=== PATIENT | female | born 1940 | race Caucasian/White ===

== ENCOUNTER 2019-05-26 07:16 | Inpatient (IN) | payer MEDICARE ==
--- NOTE | 2019-05-16 13:06 | HP ---
HISTORY AND PHYSICAL: DATE OF ADMISSION/SURGERY: 05/26/19 DATE OF OFFICE VISIT: 05/15/19 SURGEON: Caryn Huerta MD * (DICTATED BY MICHELLE TAVAREZ) PROCEDURE: Left total knee arthroplasty. CHIEF COMPLAINT: Left knee pain. HISTORY OF PRESENT ILLNESS: Ms. Quarles is an 79-year-old female with severe left knee pain. She has elected to proceed with a left total knee arthroplasty. PAST MEDICAL HISTORY: 1. AFib. 2. High cholesterol. PAST SURGICAL HISTORY: 1. Cardiac ablation. 2. ICD placement. 3. Tonsillectomy. 4. Appendectomy. 5. Hysterectomy. 6. Right total knee arthroplasty with Dr. Guerra. CURRENT MEDICATIONS: 1. Coumadin 2 mg. 2. Simvastatin 20 mg a day. 3. Prilosec 20 mg half a tab in the morning. 4. Aspirin 81 mg twice a week. 5. Calcium. ALLERGIES: To NAPROXEN. FAMILY HISTORY: Coronary artery disease. SOCIAL HISTORY: She is an 79-year-old female. She lives with her partner. She does not smoke, use drugs, or alcohol. REVIEW OF SYSTEMS: A complete 14-point review of systems was reviewed with the patient and is all negative. She denies history of DVT, PE, hepatitis, HIV, or anesthesia problems. PHYSICAL EXAMINATION GENERAL: She is well developed, well nourished, in no acute distress. VITAL SIGNS: She stands 5 feet 5 inches tall, weighs 130 pounds. Blood pressure is 112/70, heart rate is 68. HEENT: Normocephalic, atraumatic. NECK: Supple. No palpable lymph nodes. PULMONARY: The lungs are clear to auscultation bilaterally. CARDIO: Regular rate and rhythm. Strong S1, S2. ABDOMEN: Soft, nontender, nondistended. NEUROLOGICAL: She is alert and oriented x3. MUSCULOSKELETAL: Left lower extremity: The skin is intact. There are no open wounds or abrasions. There is a moderate effusion of the left knee joint. She walks with antalgic-type gait favoring the left knee. Range of motion is 5 to 125 degrees of flexion with severe patellofemoral crepitus. She has a 2+ dorsalis pedis pulse. She is able to dorsiflex and plantar flex and has intact sensation. ASSESSMENT AND PLAN: Ms. Stisser is an 79-year-old female with severe end- stage osteoarthritis of the left knee. She has failed conservative treatment and elected to proceed with a left total knee arthroplasty. The surgery is scheduled for 05/26/[address] Huerta discussed the risks and benefits of the surgery at today's visit and all of her questions were answered. She will follow up with Dr. Huerta 2 weeks after the surgery. She was told to stop her Coumadin 4 days prior to the surgery. Following the surgery, she will be placed on Lovenox as well as Coumadin until her INR is therapeutic. MICHELLE TAVAREZ [id number]/[facility] #: [id number] MTDAlexis
[~2019-05-26 07:16] MED LIST: Acetaminophen TAB* 325 MG PO ONE; Buffered Lidocaine 1% SYRIN* 1 ML/SYRINGE INTRADERM ONE; Lactated Ringers 1000 ML Bag* 1,000 ML IV SCH; Tranexamic Acid 1,000 MG in NS 0.9% 50 ML* (outpatient use) IV SCH
--- OUTSIDE RECORDS SUMMARY | 2019-05-26 07:20 | XMS REPORT | Continuity of Care Document ---
:1940 External Reference #:[id number] Author Name Caryn Huerta M.D. (transmitted by agent of provider Bell Alonzo) Address [address] [place] [address] Care Team Providers Name Role Phone Michael Alanis DO - Family Medicine Care Team Information Accountant Controller Problems Active Problems Provider Date Localized, primary osteoarthritis Caryn Huerta M.D. Onset: 04/19/2019 Social History Type Date Description Comments Sex Unknown ETOH Use Rarely consumes alcohol Tobacco Use Start: Unknown Patient has never smoked Smoking Status Reviewed: 05/15/19 Patient has never smoked Exercise Type/Frequency Exercises regularly Allergies, Adverse Reactions, Alerts Active Allergies Reaction Severity Comments Date Naproxen swelling 04/19/2019 Medications Active Medications SIG Qnty Indications Ordering Provider Date Warfarin Sodium Unknown 2mg Tablets Simvastatin Take One Tablet By Unknown 20mg Mouth Every Day Tablets Prilosec OTC one tablet in am Unknown 20mg 1/[address] breakfast Calcium 600 Unknown Aspirin 81 1 by mouth twice a Unknown 81mg Tablets week DR Immunizations Description No Information Available Vital Signs Date Vital Result Comment 05/15/2019 10:41am Height 65.50 inches 5'5.50" Weight 130.00 lb Heart Rate 68 /min BP Systolic 112 mmHg BP Diastolic 70 mmHg Respiratory Rate 12 /min Pain Level 4 BMI (Body Mass Index) 21.3 kg/m2 04/19/2019 10:48am Height 66 inches 5'6" Weight 130.00 lb Heart Rate 92 /min BP Systolic 124 mmHg BP Diastolic 90 mmHg Respiratory Rate 16 /min Body Temperature 97.1 F Pain Level 6 BMI (Body Mass Index) 21.0 kg/m2 Results Description No Information Available Procedures Description No Information Available Medical Devices Description No Information Available Encounters Type Date Location Provider Dx Diagnosis Office Visit 04/19/2019 [facility] Caryn Huerta, M25.562 Pain in left knee 10:15a at [facility] M25.462 Effusion, left knee M17.12 Unilateral primary osteoarthritis, left knee Assessments Date Code Description Provider 05/15/2019 M25.562 Pain in left knee Caryn Huerta M.D. 05/15/2019 M25.462 Effusion, left knee Caryn Huerta M.D. 05/15/2019 M17.12 Unilateral primary osteoarthritis, left knee Caryn Huerta M.D. 04/19/2019 M25.562 Pain in left knee Caryn Huerta M.D. 04/19/2019 M25.462 Effusion, left knee Caryn Huerta M.D. 04/19/2019 M17.12 Unilateral primary osteoarthritis, left knee Caryn Huerta M.D. Plan of Treatment Future Appointment(s):06/05/2019 9:45 am - Caryn Huerta M.D. at [facility] at [id number]/26/2019 8:30 am - Caryn Huerta M.D. at [facility] at [id number]/15/2019 - Caryn Huerta M.D.M25.562 Pain in left kneeFollow up:Follow up: 2 weeks after [id number] Effusion, left kneeM17.12 Unilateral primary osteoarthritis, left knee Functional Status Description No Information Available Mental Status Description No Information Available Referrals Description No Information Available
--- OUTSIDE RECORDS SUMMARY | 2019-05-26 07:20 | XMS REPORT | Continuity of Care Document ---
:1940 External Reference #:[id number] Author Name Solomon Arevalo M.D., [facility] (transmitted by agent of provider Betsey Nicholson) Address [address] [place] [address] Care Team Providers Name Role Phone Roderick Armas MD - Clinical Care Team Information Compliance Specialist [phone] Cardiac Electrophysiology Michael Alanis DO - Family Medicine Care Team Information Compliance Specialist Waqar Hale MD - Cardiovascular Care Team Information Compliance Specialist Disease Problems Active Problems Provider Date Atrial fibrillation Solomon Arevalo M.D., Onset: 01/06/2011 FACC Hyperlipidemia Solomon Arevalo M.D., Onset: 03/05/2011 FACC Atrial flutter Araceli Hopper, JACQUE, Onset: 09/08/2011 [employer] Dizziness and giddiness Araceli Hopper, JACQUE, Onset: 11/10/2011 [employer] Cardiac pacemaker in situ Araceli Hopper, JACQUE, Onset: 10/04/2012 [employer] Anticoagulant agent Araceli Hopper, MSN, Onset: 10/04/2012 [employer] Complete atrioventricular block Solomon Arevalo M.D., Onset: 10/25/2012 FAC Primary cardiomyopathy Solomon Arevalo M.D., Onset: 01/03/2015 FACC Ostium secundum type atrial septal Solomon Arevalo M.D., 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 Chronic atrial fibrillation Solomon Arevalo M.D., Onset: 03/19/2017 [facility] Paroxysmal atrial fibrillation Solomon Arevalo M.D., Onset: 03/13/2016 [facility] Social History Type Date Description Comments Sex Unknown Tobacco Use Start: Unknown Never Smoked Cigarettes ETOH Use Rarely consumes alcohol Tobacco Use Start: Unknown Patient has never smoked Smoking Status Reviewed: 04/28/19 Patient has never smoked Exercise Type/Frequency Does not exercise Allergies, Adverse Reactions, Alerts Active Allergies Reaction Severity Comments Date Naprosyn 11/27/2009 Inactive Allergies Reglan 11/27/2009 Multaq nausea 03/23/2012 Amiodarone nausea 03/23/2012 Sotalol nausea 03/23/2012 Rythmol nausea 03/23/2012 Flecainide Ineffective 08/29/2012 Medications Active Medications SIG Qnty Indications Ordering Date Provider Enoxaparin Sodium 60 mg SQ bid 6ml Z01.810 Mickey, 04/28/2019 starting after the Solomon Shields M.D., 60mg/0.6ML Solution surgery and FACC continuing until Inr is 2 or higher Amoxicillin 4 tabs by mouth 4caps Q21.1 Araceli Hopper 05/28/2017 500mg one hour prior to JACQUE Bass, Capsules procedures [employer] Aspirin 1 po 2x weekly Mickey, 10/25/2012 81mg Tablets Solomon Shields M.D., FACC Simvastatin 1 po qd 90tabs Araceli Hopper 06/16/2010 20mg JACQUE Bass, Tablets [employer] Multivitamins 1 po qd Unknown Tablets Prilosec 1 po qod 30caps Unknown 20mg Capsules DR Warfarin Sodium 1-2 tabs by mouth 120tabs I48.0 Mickey, 2mg every day Solomon Shields M.D., Tablets alternating days FACC Calcium po qd Unknown 600Unit Tablets Tylenol as needed Unknown 325mg Tablets Albuterol Sulfate nebulized every 4 Unknown hours as needed (2.5mg/3ML) 0.083% Nebulizer Immunizations CPT Code Status Date Vaccine Lot # 13770 Given 05/23/2002 flu vaccination 07298 Given 05/10/2001 Pneumovax Injection 12796 Given 05/10/2001 flu vaccination 34775 Given 05/17/2000 flu vaccination 19729 Given 05/07/1999 Influenza Virus Vaccine 64496 Given 05/07/1999 Influenza Virus Whole 34650 Given 05/17/1998 Influenza Virus Vaccine 33035 Given 05/02/1997 Influenza Virus Vaccine 20425 Given 04/12/1997 Tetnus Injection Vital Signs Date Vital Result Comment 04/28/2019 10:22am BP Systolic Sitting Right Arm 128 mmHg BP Diastolic Sitting Right Arm 86 mmHg Heart Rate 77 /min Respiratory Rate 18 /min Height 66 inches 5'6" Weight 129.00 lb BMI (Body Mass Index) 20.8 kg/m2 BSA (Body Surface Area) 1.66 m2 [place] body weight in kilograms 59 kg O2 % BldC Oximetry 99 % Ora 12/16/2018 1:10pm BP Systolic Sitting Left Arm 112 mmHg BP Diastolic Sitting Left Arm 60 mmHg Heart Rate 78 /min Respiratory Rate 15 /min Height 66 inches 5'6" Weight 132.00 lb BMI (Body Mass Index) 21.3 kg/m2 BSA (Body Surface Area) 1.68 m2 [place] body weight in kilograms 59 kg O2 Saturation Level with Exercise 94 % Results Test Date Facility Test Result H/L Range Note Laboratory test [facility] Thyroid Stim 1.44 Normal 0.30-4.20 1 finding [address] Hormone uIU/[place] [address] [phone] LDL Cholesterol [facility] Cholesterol 174 mg/dL <200 2 Profile [address] [place], [place] [id number] [phone] Triglycerides 83 mg/dL <150 3 HDL Cholesterol 96 mg/dL >40 4 LDL-Cholesterol 61 mg/dL < 100 5 Comprehensive 04/26/2019 [facility] Glucose 78 mg/dL Normal 74-106 Metabolic Panel [address] [place] [address] [phone] BUN 15 mg/dL Normal 7-18 Creatinine 1.0 mg/dL Normal 0.6-1.3 Glom Filtration Rate, Estimate 57 mL/min >60 If >60 mL/min >60 6 BUN/Creat 15.0 ratio Sodium 141 mmol/L Normal 136-145 Potassium 4.2 mmol/L Normal 3.5-5.1 Chloride 107 mmol/L Normal 98-107 Carbon Dioxide 30 mmol/L Normal 21-32 Anion Gap 4 mEq/L Low 8-16 Calcium 8.6 mg/dL Normal 8.5-10.1 Total Protein 7.7 g/dL Normal 6.4-8.2 Albumin 3.8 g/dL Normal 3.4-5.0 Globulin 3.9 g/dL Normal 1.9-4.3 Alb/Glob 1.0 ratio Bilirubin,Total 0.9 mg/dL Normal 0.2-1.0 Sgot/Ast 18 U/L Normal 15-37 SGPT/Alt 21 U/L Normal 12-78 Alkaline Phosphatase 69 U/L Normal 45-117 CBC W/Automated 04/26/2019 [facility] White Blood 4.5 K/uL Normal 3.1-10.[address] [place] [address] [phone] Red Blood Count 4.46 M/uL Normal 3.90-5.40 Hemoglobin 14.4 gm/dL Normal 11.6-15.8 Hematocrit 43.9 % Normal 36.0-46.1 Mean Cell Volume 98.4 fl Normal 80.9-99.0 Mean Corpuscular HGB 32.3 pg Normal 25.9-32.7 Mean Corpuscular HGB Conc 32.8 g/dL Normal 30.8-34.3 Platelet Count 191 K/uL Normal 155-360 Red Cell Distri Width SD 47.0 fl Normal 36-47 Red Cell Distri Width %CV 13.0 % Normal 11.7-14.4 Mean Platelet Volume 10.7 fl Normal 8.9-12.4 Neut% 41.6 % Normal 40.4-72.8 Lymph % 27.8 % Normal 20.0-42.0 Treasure % 27.6 % High 4.3-13.2 Eo% 1.5 % Normal 0.0-6.6 Bas% 0.2 % Normal 0.0-1.1 Immature Grans 1.3 % Normal 0.0-5.0 NRBC % 0.0 /100WBC < 10/ 100 WBC Neut# 1.88 K/uL Normal 1.8-7.0 Lymph # 1.26 K/uL Normal 1.0-4.0 Treasure # 1.25 K/uL High 0.3-0.9 Eos # 0.07 K/uL Normal 0.0-0.5 Baso # 0.01 K/uL Normal 0.0-0.1 Immature Grans Absolute 0.06 K/uL NRBC # 0.00 K/uL Protime 04/26/2019 [facility] Protime 34.6 seconds High 12.0-14.4 [address] [place], [place] [id number] [phone] Inr 3.3 High 0.9-1.1 7 Anticoagulant Therapy? YES Date of Last Dose: T-1 Time of Last Dose: 1829 Protime 04/12/2019 [facility] Protime 30.6 seconds High 12.0-14.4 8 [address] [place] [address] [phone] Inr 2.9 High 0.9-1.1 9 Anticoagulant Therapy? YES Date of Last Dose: T-1 Time of Last Dose: 1929 Protime 04/05/2019 [facility] Protime 26.3 seconds High 12.0-14.4 [address] [place], [place] [id number] [phone] Inr 2.4 High 0.9-1.1 10 Anticoagulant Therapy? YES Date of Last Dose: [id number] Time of Last Dose: 1829 Protime 03/29/2019 [facility] Protime 38.4 seconds High 12.0-14.4 [address] [place], [place] [id number] [phone] Inr 3.8 High 0.9-1.1 11 Anticoagulant Therapy? YES Date of Last Dose: T-1 Time of Last Dose: 1829 Protime 03/13/2019 [facility] Protime 24.8 seconds High 12.0-14.4 12 [address] [place] [address] [phone] Inr 2.2 High 0.9-1.1 13 Anticoagulant Therapy? YES Date of Last Dose: T-1 Time of Last Dose: 1830 Protime 03/06/2019 [facility] Protime 32.2 seconds High 12.0-14.4 [address] [place] [address] [phone] Inr 3.1 High 0.9-1.1 14 Anticoagulant Therapy? YES Date of Last Dose: T-1 Time of Last Dose: 2100 Protime 02/27/2019 [facility] Protime 26.7 seconds High 12.0-14.4 [address] [place] [address] [phone] Inr 2.4 High 0.9-1.1 15 Anticoagulant Therapy? YES Date of Last Dose: 02/26/19 Time of Last Dose: 1845 Protime 02/20/2019 [facility] Protime 36.7 seconds High 12.0-14.4 16 [address] [place] [address] [phone] Inr 3.6 High 0.9-1.1 17 Anticoagulant Therapy? YES Date of Last Dose: 02/19/19 Time of Last Dose: 630PM Protime 02/06/2019 [facility] Protime 29.8 seconds High 12.0-14.4 [address] [place] [address] [phone] Inr 2.8 High 0.9-1.1 18 Anticoagulant Therapy? YES Date of Last Dose: T-1 Time of Last Dose: 1830 Protime 01/05/2019 [facility] Protime 27.0 seconds High 12.0-14.4 [address] [place] [address] [phone] Inr 2.5 High 0.9-1.1 19 Anticoagulant Therapy? YES Date of Last Dose: T-1 Time of Last Dose: 1830 Protime 12/29/2018 [facility] Protime 29.6 seconds High 12.0-14.4 [address] [place] [address] [phone] Inr 2.8 High 0.9-1.1 20 Anticoagulant Therapy? YES Date of Last Dose: [id number] Time of Last Dose: 2100 Protime 12/23/2018 [facility] Protime 20.8 seconds High 12.0-14.4 [address] [place] [address] [phone] Inr 1.8 High 0.9-1.1 21 Anticoagulant Therapy? YES Date of Last Dose: 12/21/18 Time of Last Dose: 1830 Protime 12/16/2018 [facility] Protime 17.9 seconds High 12.0-14.4 [address] [place] [address] [phone] Inr 1.5 High 0.9-1.1 22 Anticoagulant Therapy? YES Date of Last Dose: 12-13-18 Time of Last Dose: 1830 Blood monocytes 12/14/2018 N2N/CCD Import Blood monocytes 2.88 High 0.3- 0.9 automated count automated count (number/volume) (number/volume) Automated blood 12/14/2018 N2N/CCD Import Automated blood 0.00 0.0-0.5 eosinophil count eosinophil count Automated blood 12/14/2018 N2N/CCD Import Automated blood 0.01 0.0-0.1 basophil count basophil count (number/volume) (number/volume) Automated blood 12/14/2018 N2N/CCD Import Automated blood 0.15 immature immature granulocyte count granulocyte count (number (number/volume) Automated blood 12/14/2018 N2N/CCD Import Automated blood 0.00 nucleated nucleated erythrocyte count erythrocyte count (count (count/volume) Prothrombin time 12/14/2018 N2N/CCD Import Prothrombin time 41.6 High 12.0-14.4 (PT) in platelet (PT) in platelet poor plasma poor plasma Platelet poor 12/14/2018 N2N/CCD Import Platelet poor 4.2 High 0.9-1.1 plasma plasma international international normalized rati normalized ratio (Inr) by coagulation assay (relative time) Serum or plasma 12/14/2018 N2N/CCD Import Serum or plasma 98 74-106 glucose measurement glucose (mass/volume) measurement (mass/volume) Serum or plasma 12/14/2018 N2N/CCD Import Serum or plasma 17 7-18 urea nitrogen urea nitrogen measurement measurement (mass/vo (mass/volume) Serum or plasma 12/14/2018 N2N/CCD Import Serum or plasma 0.8 0.6-1.3 creatinine creatinine measurement measurement (mass/volum (mass/volume) Estimated 12/14/2018 N2N/CCD Import Estimated >60 >60 glomerular glomerular filtration rate filtration rate (GFR) non-Afr (GFR) non- GFR/Bsa pred.black 12/14/2018 N2N/CCD Import GFR/Bsa pred.black >60 >60 SerPl MDRD-ArVRat SerPl MDRD-ArVRat Serum or plasma 12/14/2018 N2N/CCD Import Serum or plasma 21.2 urea urea nitrogen/creatinine nitrogen/creatinin mass rati e mass ratio Sodium SerPl-sCnc 12/14/2018 N2N/CCD Import Sodium SerPl-sCnc 139 136- 145 Serum or plasma 12/14/2018 N2N/CCD Import Serum or plasma 4.1 3.5-5.1 potassium potassium measurement measurement Serum or plasma 12/14/2018 N2N/CCD Import Serum or plasma 109 High 98- 107 chloride chloride measurement measurement Co2 SerPl-sCnc 12/14/2018 N2N/CCD Import Co2 SerPl-sCnc 22 21-32 Serum or plasma 12/14/2018 N2N/CCD Import Serum or plasma 8 8-16 anion gap anion gap Serum or plasma 12/14/2018 N2N/CCD Import Serum or plasma 8.0 Low 8.5- 10.1 calcium measurement calcium (mass/volume) measurement (mass/volume) CBC W/Automated 12/14/2018 [facility] White Blood Count 6.5 Normal 3.1-10.7 [address] K/[place] [address] [phone] Red Blood Count 3.62 M/uL Low 3.90-5.40 Hemoglobin 11.5 gm/dL Low 11.6-15.8 Hematocrit 35.7 % Low 36.0-46.1 Mean Cell Volume 98.6 fl Normal 80.9-99.0 Mean Corpuscular HGB 31.8 pg Normal 25.9-32.7 Mean Corpuscular HGB Conc 32.2 g/dL Normal 30.8-34.3 Platelet Count 121 K/uL Low 155-360 Red Cell Distri Width SD 49.7 fl High 36-47 Red Cell Distri Width %CV 13.6 % Normal 11.7-14.4 Mean Platelet Volume 11.4 fl Normal 8.9-12.4 Neut% 43.5 % Normal 40.4-72.8 Lymph % 9.8 % Low 20.0-42.0 Treasure % 44.2 % High 4.3-13.2 Eo% 0.0 % Normal 0.0-6.6 Bas% 0.2 % Normal 0.0-1.1 Immature Grans 2.3 % Normal 0.0-5.0 NRBC % 0.0 /100WBC < 10/ 100 WBC Neut# 2.84 K/uL Normal 1.8-7.0 Lymph # 0.64 K/uL Low 1.0-4.0 Treasure # 2.88 K/uL High 0.3-0.9 Eos # 0.00 K/uL Normal 0.0-0.5 Baso # 0.01 K/uL Normal 0.0-0.1 Immature Grans Absolute 0.15 K/uL NRBC # 0.00 K/uL Protime 12/14/2018 [facility] Protime 41.6 seconds High 12.0-14.4 [address] [place], [place] [address] [phone] Inr 4.2 High 0.9-1.1 24 Basic Metabolic Panel 12/14/2018 [facility] Glucose 98 mg/dL Normal 74-106 [address] [place] [address] [phone] BUN 17 mg/dL Normal 7-18 Creatinine 0.8 mg/dL Normal 0.6-1.3 Glom Filtration Rate, Estimate >60 mL/min >60 If >60 mL/min >60 25 BUN/Creat 21.2 ratio Sodium 139 mmol/L Normal 136-145 Potassium 4.1 mmol/L Normal 3.5-5.1 Chloride 109 mmol/L High 98-107 Carbon Dioxide 22 mmol/L Normal 21-32 Anion Gap 8 mEq/L Normal 8-16 Calcium 8.0 mg/dL Low 8.5-10.1 Automated leukocyte 12/14/2018 N2N/CCD Import Automated 6.5 3.1-10.7 count leukocyte count (number/volume) (number/volume) Blood erythrocytes 12/14/2018 N2N/CCD Import Blood erythrocytes 3.62 Low 3.90-5.40 automated count automated count (number/volume) (number/volume) Blood hemoglobin 12/14/2018 N2N/CCD Import Blood hemoglobin 11.5 Low 11.6 -15.8 measurement measurement (mass/volume) (mass/volume) Hct VFr Bld Auto 12/14/2018 N2N/CCD Import Hct VFr Bld Auto 35.7 Low 36.0 -46.1 Automated 12/14/2018 N2N/CCD Import Automated 98.6 80.9-99.0 erythrocyte mean erythrocyte mean corpuscular volume corpuscular volume (MCV (MCV) measurement Automated 12/14/2018 N2N/CCD Import Automated 31.8 25.9-32.7 erythrocyte mean erythrocyte mean corpuscular corpuscular hemoglobin hemoglobin (mass per erythrocyte) Automated 12/14/2018 N2N/CCD Import Automated 32.2 30.8-34.3 erythrocyte mean erythrocyte mean corpuscular corpuscular hemoglobin hemoglobin concentration measurement (mass/volume) Automated blood 12/14/2018 N2N/CCD Import Automated blood 121 Low 155- 360 platelet count platelet count (count/volume) (count/volume) Automated blood 12/14/2018 N2N/CCD Import Automated blood 0.64 Low 1.0- 4.0 lymphocyte count lymphocyte count (number/volume) (number/volume) Absolute neutrophil 12/14/2018 N2N/CCD Import Absolute 2.84 1.8-7.0 count neutrophil count Automated blood 12/14/2018 N2N/CCD Import Automated blood 0.0 < 10/ 100 nucleated nucleated WBC erythrocyte count erythrocyte count as per as percentage of total leukocytes Automated blood 12/14/2018 N2N/CCD Import Automated blood 2.3 0.0-5.0 immature immature granulocyte count granulocyte count as perc as percentage of total leukocytes Automated basophil 12/14/2018 N2N/CCD Import Automated basophil 0.2 0.0- 1.1 % % Automated 12/14/2018 N2N/CCD Import Automated 0.0 0.0-6.6 eosinophil % eosinophil % Automated 12/14/2018 N2N/CCD Import Automated 49.7 High 36-47 erythrocyte erythrocyte distribution width distribution width Automated 12/14/2018 N2N/CCD Import Automated 13.6 11.7-14.4 erythrocyte erythrocyte distribution width distribution width ratio ratio Automated blood 12/14/2018 N2N/CCD Import Automated blood 11.4 8.9-12.4 platelet mean platelet mean volume measurement volume measurement Automated monocyte 12/14/2018 N2N/CCD Import Automated monocyte 44.2 High 4.3-13.2 % % Automated blood 12/14/2018 N2N/CCD Import Automated blood 9.8 Low 20.0- 42.0 lymphocytes/100 lymphocytes/100 leukocytes leukocytes Automated blood 12/14/2018 N2N/CCD Import Automated blood 43.5 40.4- 72.8 neutrophils/100 neutrophils/100 leukocytes leukocytes Serum or plasma 12/13/2018 N2N/CCD Import Serum or plasma 67 45-117 alkaline alkaline phosphatase phosphatase measurement ( measurement (enzymatic activity/volume) Serum or plasma 12/13/2018 N2N/CCD Import Serum or plasma 1.5 0.4-1.9 lactate measurement lactate (moles/volume) measurement (moles/volume) Serum or plasma 12/13/2018 N2N/CCD Import Serum or plasma <0.015 troponin i.cardiac troponin i.cardiac measurement (ma measurement (mass/volume) Blood Culture 12/13/2018 [facility] Blood Culture NO [address] Aerobic GROWTH: JONATHON [place]rell [address] FINAL [phone] <SEE NOTE> Blood Culture Anaerobic NO GROWTH: FINAL <SEE NOTE> 27 Unloinc 12/13/2018 N2N/CCD Import Unloinc Yes Arterial blood pH 12/13/2018 N2N/CCD Import Arterial blood pH 7.47 High 7.35 measurement with measurement with -7.4 patient tempera patient temperature 5 correction Arterial blood 12/13/2018 N2N/CCD Import Arterial blood partial 32 Low 35 -4 partial pressure pressure of carbon 5 of carbon dioxide dioxide with temperature correction Arterial blood 12/13/2018 N2N/CCD Import Arterial blood partial 60 Low 80 -1 partial pressure pressure of oxygen 05 of oxygen adjusted adjusted to patient's actualtemperature Arterial blood 12/13/2018 N2N/CCD Import Arterial blood 23 22-2 bicarbonate bicarbonate 6 measurement measurement (moles/volu (moles/volume) Arterial blood 12/13/2018 N2N/CCD Import Arterial blood base 0 -2-2 base excess excess determination determination by by calculation calcul Arterial blood 12/13/2018 N2N/CCD Import Arterial blood oxygen 92 90-9 oxygen saturation saturation measurement 9 measurement Unloinc 12/13/2018 N2N/CCD Import Unloinc Room Air Determination of 12/13/2018 N2N/CCD Import Determination of 20-1 inhaled oxygen inhaled oxygen 01 concentration (vol concentration (volume fraction) Arterial blood gas 12/13/2018 N2N/CCD Import Arterial blood gas [facility].Art. measurement measurement Protime 12/13/2018 [facility] Protime 34.2 [address] 12[address] seconds -[address]. [place] [address] 4 [phone] Inr 3.3 High 0.9-1.1 28 Aerobic blood 12/13/2018 N2N/CCD Import Aerobic blood No Growth culture culture Anaerobic blood 12/13/2018 N2N/CCD Import Anaerobic blood No Growth culture culture Blood Culture 12/13/2018 [facility] Blood Culture NO GROWTH: [address] Aerobic FINAL <[place] [address] NOTE> [phone] Blood Culture Anaerobic NO GROWTH: FINAL <SEE NOTE> 30 Unloinc 12/13/2018 N2N/CCD Import Unloinc Diff Ordered Blood total cell 12/13/2018 N2N/CCD Import Blood total cell 100 count count Manual blood band 12/13/2018 N2N/CCD Import Manual blood band 4 0-8 neutrophils form/100 neutrophils form/100 leukocytes leukocytes Manual blood 12/13/2018 N2N/CCD Import Manual blood 51 33- segmented segmented 73 neutrophils/100 neutrophils/100 leukocytes leukocytes Manual blood 12/13/2018 N2N/CCD Import Manual blood 5 Low 20- lymphocytes/100 lymphocytes/100 42 leukocytes leukocytes Manual blood variant 12/13/2018 N2N/CCD Import Manual blood variant 9 High 0-7 lymphocytes as lymphocytes as percentage of percentage of leukocytes Serum or plasma 12/13/2018 N2N/CCD Import Serum or plasma 19 12- alanine alanine 78 aminotransferase aminotransferase measureme measurement (enzymatic activity/volume) Serum or plasma 12/13/2018 N2N/CCD Import Serum or plasma 20 15- aspartate aspartate 37 aminotransferase aminotransferase measure measurement (enzymatic activity/volume) Serum or plasma 12/13/2018 N2N/CCD Import Serum or plasma 0.7 0.2 total bilirubin total bilirubin -1. measurement (mass/ measurement 0 (mass/volume) Serum or plasma 12/13/2018 N2N/CCD Import Serum or plasma 1.0 albumin/globulin albumin/globulin mass ratio mass ratio Serum globulin 12/13/2018 N2N/CCD Import Serum globulin 3.4 1.9 measurement by measurement by -4. calculation (mass/vo calculation 3 (mass/volume) Serum or plasma 12/13/2018 N2N/CCD Import Serum or plasma 3.5 3.4 albumin measurement albumin measurement -5. (mass/volume) (mass/volume) 0 Serum or plasma 12/13/2018 N2N/CCD Import Serum or plasma 6.9 6.4 protein measurement protein measurement -8. (mass/volume) (mass/volume) 2 RBC morphology 12/13/2018 N2N/CCD Import RBC morphology Normal Blood platelet 12/13/2018 N2N/CCD Import Blood platelet Slight adequacy detection adequacy detection Decrease by light microsc by light microscopy Manual blood 12/13/2018 N2N/CCD Import Manual blood 31 High 0-1 monocytes/100 monocytes/100 0 leukocytes leukocytes Protime 12/05/2018 [facility] Protime 28.9 seconds High 12. 31 [address] [facility] [address] [place] [address] 4.4 [phone] Inr 2.7 High 0.9-1.1 32 Anticoagulant Therapy? YES Date of Last Dose: [id number] Time of Last Dose: 1830 Protime 11/28/2018 [facility] Protime 22.9 seconds High 12.0-14.4 [address] [place] [address] [phone] Inr 2.0 High 0.9-1.1 33 Anticoagulant Therapy? YES Date of Last Dose: T-1 Time of Last Dose: 1930 Protime 11/21/2018 [facility] Protime 42.2 seconds High 12.0-14.4 [address] [place] [address] [phone] Inr 4.3 High 0.9-1.1 34 Anticoagulant Therapy? YES Date of Last Dose: T-1 Time of Last Dose: 2030 Serum or plasma 11/01/2018 N2N/CCD Import Serum or plasma 164 <200 cholesterol cholesterol measurement measurement (mass/volu (mass/volume) Serum or plasma 11/01/2018 N2N/CCD Import Serum or plasma 89 <150 triglyceride triglyceride measurement measurement (mass/vol (mass/volume) Serum or plasma 11/01/2018 N2N/CCD Import Serum or plasma 84 >40 cholesterol in HDL cholesterol in HDL measurement (ma measurement (mass/volume) Serum or plasma 11/01/2018 N2N/CCD Import Serum or plasma 62 < 100 cholesterol in LDL cholesterol in LDL measurement by measurement by calculation (mass/volume) Serum or plasma 11/01/2018 N2N/CCD Import Serum or plasma 2.25 0.30- 4.20 thyrotropin thyrotropin measurement measurement (units/vol (units/volume) 1 I48.1, Z79.01 (E78.2) 2 Reference Guidelines*: Desirable: ........... < 200 mg/dL Borderline High: ..... 200-239 mg/dL High: ................ >= 240 mg/dL * The National Cholesterol Education Program (NCEP) 3 Reference Guidelines*: Normal: ............. < 150 mg/dL Borderline High: .... 150-199 mg/dL High: ............... 200-499 mg/dL Very High: .......... > 500 mg/dL * Source: National Cholesterol Education Program (NCEP) 4 Reference Guidelines*: Low HDL: ..... < 40 mg/dL Normal: ..... 40-60 mg/dL Desirable: ... > 60 mg/dL *The National Cholesterol Education Program(NCEP) 5 Reference Guidelines*: Optimal:........... <100 mg/dL Near Optimal....... 100-129 mg/dL Borderline High.... 130-159 mg/dL High............... 160-189 mg/dL Very High.......... >=190 mg/dL * Source: National Cholesterol Education Program (NCEP) 6 Note: Persistent reduction for 3 months or more in an eGFR <60 mL/min/1.73 m2 defines CKD. Patients with eGFR values >/=60 mL/min/1.73 m2 may also have CKD if evidence of persistent proteinuria is present. The original MDRD equation for estimated GFR is not valid for patients less than 18 years of age. Additional information may be found at www.kdoqi.org. 7 THERAPEUTIC INR RANGE: 2.0 - 3.0 DVT, Pulmonary embolus, prophylaxis against venous thrombosis or systemic embolization in high risk patients. 2.5 - 3.5 Mechanical heart valves 8 I48.1, Z79.01 9 THERAPEUTIC INR RANGE: 2.0 - 3.0 DVT, Pulmonary embolus, prophylaxis against venous thrombosis or systemic embolization in high risk patients. 2.5 - 3.5 Mechanical heart valves 10 THERAPEUTIC INR RANGE: 2.0 - 3.0 DVT, Pulmonary embolus, prophylaxis against venous thrombosis or systemic embolization in high risk patients. 2.5 - 3.5 Mechanical heart valves 11 THERAPEUTIC INR RANGE: 2.0 - 3.0 DVT, Pulmonary embolus, prophylaxis against venous thrombosis or systemic embolization in high risk patients. 2.5 - 3.5 Mechanical heart valves 12 I48.0. Z79.01 13 THERAPEUTIC INR RANGE: 2.0 - 3.0 DVT, Pulmonary embolus, prophylaxis against venous thrombosis or systemic embolization in high risk patients. 2.5 - 3.5 Mechanical heart valves 14 THERAPEUTIC INR RANGE: 2.0 - 3.0 DVT, Pulmonary embolus, prophylaxis against venous thrombosis or systemic embolization in high risk patients. 2.5 - 3.5 Mechanical heart valves 15 THERAPEUTIC INR RANGE: 2.0 - 3.0 DVT, Pulmonary embolus, prophylaxis against venous thrombosis or systemic embolization in high risk patients. 2.5 - 3.5 Mechanical heart valves 16 I48.1, Z79.01 17 THERAPEUTIC INR RANGE: 2.0 - 3.0 DVT, Pulmonary embolus, prophylaxis against venous thrombosis or systemic embolization in high risk patients. 2.5 - 3.5 Mechanical heart valves 18 THERAPEUTIC INR RANGE: 2.0 - 3.0 DVT, Pulmonary embolus, prophylaxis against venous thrombosis or systemic embolization in high risk patients. 2.5 - 3.5 Mechanical heart valves 19 THERAPEUTIC INR RANGE: 2.0 - 3.0 DVT, Pulmonary embolus, prophylaxis against venous thrombosis or systemic embolization in high risk patients. 2.5 - 3.5 Mechanical heart valves 20 THERAPEUTIC INR RANGE: 2.0 - 3.0 DVT, Pulmonary embolus, prophylaxis against venous thrombosis or systemic embolization in high risk patients. 2.5 - 3.5 Mechanical heart valves 21 THERAPEUTIC INR RANGE: 2.0 - 3.0 DVT, Pulmonary embolus, prophylaxis against venous thrombosis or systemic embolization in high risk patients. 2.5 - 3.5 Mechanical heart valves 22 THERAPEUTIC INR RANGE: 2.0 - 3.0 DVT, Pulmonary embolus, prophylaxis against venous thrombosis or systemic embolization in high risk patients. 2.5 - 3.5 Mechanical heart valves 23 PNEUMONIA 24 THERAPEUTIC INR RANGE: 2.0 - 3.0 DVT, Pulmonary embolus, prophylaxis against venous thrombosis or systemic embolization in high risk patients. 2.5 - 3.5 Mechanical heart valves 25 Note: Persistent reduction for 3 months or more in an eGFR <60 mL/min/1.73 m2 defines CKD. Patients with eGFR values >/=60 mL/min/1.73 m2 may also have CKD if evidence of persistent proteinuria is present. The original MDRD equation for estimated GFR is not valid for patients less than 18 years of age. Additional information may be found at www.k[facility].org. 26 NO GROWTH: FINAL REPORT 27 NO GROWTH: FINAL REPORT 28 THERAPEUTIC INR RANGE: 2.0 - 3.0 DVT, Pulmonary embolus, prophylaxis against venous thrombosis or systemic embolization in high risk patients. 2.5 - 3.5 Mechanical heart valves 29 NO GROWTH: FINAL REPORT 30 NO GROWTH: FINAL REPORT 31 I48.1, Z79.01 32 THERAPEUTIC INR RANGE: 2.0 - 3.0 DVT, Pulmonary embolus, prophylaxis against venous thrombosis or systemic embolization in high risk patients. 2.5 - 3.5 Mechanical heart valves 33 THERAPEUTIC INR RANGE: 2.0 - 3.0 DVT, Pulmonary embolus, prophylaxis against venous thrombosis or systemic embolization in high risk patients. 2.5 - 3.5 Mechanical heart valves 34 THERAPEUTIC INR RANGE: 2.0 - 3.0 DVT, Pulmonary embolus, prophylaxis against venous thrombosis or systemic embolization in high risk patients. 2.5 - 3.5 Mechanical heart valves Procedures Date Code Description Status 04/28/2019 90839 EKG-Tracing And Report Completed 04/11/2019 19220 Cardioversion/Defibril. Multiple Lead Pacemaker Completed 01/18/2019 75128 Echocardiogram Complete Completed 12/14/2018 48355 EKG Interpretation And Report Only Completed 11/16/2018 71273 Pacemaker/Cardio-Defibrillator Remote Data Acquistion Completed 11/16/2018 92496 Remote Icd Monitor Completed Medical Devices Description No Information Available Encounters Type Date Location Provider Dx Diagnosis Office Visit 04/28/2019 Cardiology Office Solomon Arevalo I48.0 Paroxysmal atrial 10:20a Kalpesh Shields., [facility] fibrillation I44.2 Atrioventricular block, complete I42.9 Cardiomyopathy, unspecified Q21.1 Atrial septal defect Z01.810 Encounter for preprocedural cardiovascular examination Office Visit 12/16/2018 1:20p Cardiology Office Obed, I48.0 Paroxysmal atrial Marlyss B., [place] fibrillation I42.9 Cardiomyopathy, unspecified I44.2 Atrioventricular block, complete Z95.810 Presence of automatic (implantable) cardiac defibrillator Q21.1 Atrial septal defect Assessments Date Code Description Provider 04/28/2019 I48.0 Paroxysmal atrial fibrillation Solomon Arevalo M.D., [facility] 04/28/2019 I44.2 Atrioventricular block, complete Solomon Arevalo M.D., [facility] 04/28/2019 I42.9 Cardiomyopathy, unspecified Solomon Arevalo M.D., [facility] 04/28/2019 Q21.1 Atrial septal defect Solomon Arevalo M.D., [facility] 04/28/2019 Z01.810 Encounter for preprocedural Solomon Arevalo M.D., cardiovascular examination [facility] 04/11/2019 I42.9 Cardiomyopathy, unspecified Solomon Arevalo M.D., [facility] 04/11/2019 I42.9 Cardiomyopathy, unspecified Victorina Clays Toro., [place] 04/11/2019 I48.0 Paroxysmal atrial fibrillation Solomon Arevalo M.D., [facility] 04/11/2019 I48.0 Paroxysmal atrial fibrillation Manish Clay., [place] 04/11/2019 I44.2 Atrioventricular block, complete Solomon Arevalo M.D., [facility] 04/11/2019 I44.2 Atrioventricular block, complete Manish Clay B., [place] 04/11/2019 Z95.810 Presence of automatic (implantable) Solomon Arevalo M.D., cardiac defibrillator [facility] 04/11/2019 Z95.810 Presence of automatic (implantable) Obed, Marlyss B., [place] cardiac defibrillator 01/18/2019 I42.9 Cardiomyopathy, unspecified Kal Celis MD 12/16/2018 I48.0 Paroxysmal atrial fibrillation ObedDarcylyss B., [place] 12/16/2018 I42.9 Cardiomyopathy, unspecified Obed Marlyss B., [place] 12/16/2018 I44.2 Atrioventricular block, complete ObedDarcylyss B., [place] 12/16/2018 Z95.810 Presence of automatic (implantable) Obed Marlyss B., [place] cardiac defibrillator 12/16/2018 Q21.1 Atrial septal defect Obed Marlyss B., [place] 12/14/2018 J20.9 Acute bronchitis, unspecified RoderDianeEllie, DRILLING ENGINEERING MANAGER 12/14/2018 J96.21 Acute and chronic respiratory failure Solomon Arevalo M.D., with hypoxia [facility] 12/14/2018 J96.01 Acute respiratory failure with Ellie Perkins, DRILLING ENGINEERING MANAGER hypoxia 12/14/2018 I51.7 Cardiomegaly Solomon Arevalo M.D., [facility] 12/14/2018 D72.821 Monocytosis (symptomatic) RoderLissath, DRILLING ENGINEERING MANAGER 12/14/2018 I44.2 Atrioventricular block, complete Solomon Arevalo M.D., [facility] 12/14/2018 Z86.79 Personal history of other diseases of RoderDianeEllie, DRILLING ENGINEERING MANAGER the circulatory system 12/14/2018 Z95.810 Presence of automatic (implantable) Solomon Arevalo M.D., cardiac defibrillator [facility] 12/13/2018 J20.9 Acute bronchitis, unspecified Roder, Ellie, DRILLING ENGINEERING MANAGER 12/13/2018 J96.01 Acute respiratory failure with RoderDianeEllie, DRILLING ENGINEERING MANAGER hypoxia 12/13/2018 D72.821 Monocytosis (symptomatic) Roder, Ellie, DRILLING ENGINEERING MANAGER 12/13/2018 Z86.79 Personal history of other diseases of RoderDianeEllie, DRILLING ENGINEERING MANAGER the circulatory system 11/16/2018 I48.0 Paroxysmal atrial fibrillation Solomon Arevalo M.D., [facility] 11/16/2018 I48.0 Paroxysmal atrial fibrillation TTM Check 11/16/2018 I44.2 Atrioventricular block, complete Solomon Arevalo M.D., [facility] 11/16/2018 I44.2 Atrioventricular block, complete TTM Check 11/16/2018 I42.9 Cardiomyopathy, unspecified Solomon Arevalo M.D., [facility] 11/16/2018 I42.9 Cardiomyopathy, unspecified TTM Check 11/16/2018 Z95.810 Presence of automatic (implantable) Solomon Arevalo M.D., cardiac defibrillator [facility] 11/16/2018 Z95.810 Presence of automatic (implantable) TTM Check cardiac defibrillator Plan of Treatment Future Appointment(s):10/30/2019 10:00 am - Araceli Hopper, JACQUE, POWER PLANT ENGINEER at [facility]iology [place]508/09/2019 8:00 am - TTM Check at [facility]iology [place]504/28/2019 - Solomon Arevalo M.D., FACCI48.0 Paroxysmal atrial fibrillationComments: She is currently in SR or atrial pacing. She needs to continue OAC. Not a candidate for Watchman.I44.2 Atrioventricular block, completeComments:She is pacer dependent. Pacing V 100% with very rare and very brief muscle stimulation. No changes will be introduced now. She will call if the problem inbfcapP46.9 Cardiomyopathy, unspecifiedComments:Secondary to 100% RV pacing. Recovered completely after CRTQ21.1 Atrial septal defectComments:s/p closure.Z01.810 Encounter for preprocedural cardiovascular examinationNew Medication:Enoxaparin Sodium 60 mg/0.6ML - 60 mg SQ bid starting after the surgery and continuing until Inr is 2 or higherComments:The patient is cleared for surgery without further study. See letter. Functional Status Functional Condition Comment Date Status Independent with all ADL's Active Mental Status Description No Information Available Referrals Description No Information Available
--- OUTSIDE RECORDS SUMMARY | 2019-05-26 07:20 | XMS REPORT | Continuity of Care Document ---
:1940 External Reference #:[id number] Author Name Aida Hobson NP (transmitted by agent of provider Gayla Moreira) Address [address] [place] [address] Care Team Providers Name Role Phone AlanisJacques tarango DO Care Team Information Conference Assistant [phone] Problems Active Problems Provider Date Bilateral tinnitus Aida Hobson NP Onset: 02/08/2019 Impacted cerumen Aida Hobson NP Onset: 02/08/2019 Social History Type Date Description Comments Sex Unknown Allergies, Adverse Reactions, Alerts Active Allergies Reaction Severity Comments Date Naprosyn Rash & Swelling 10/14/2007 Medications Active Medications SIG Qnty Indications Ordering Provider Date Simvastatin Unknown 20mg Tablets Aspirin Unknown 81mg Chewtabs Calcium 600 Unknown 600mg Tablets Womens One Daily Unknown Tablets Warfarin Sodium Unknown 2mg Tablets Omeprazole 1 po qod Unknown 20mg Capsules DR Immunizations Description No Information Available Vital Signs Date Vital Result Comment 04/03/2019 8:57am Weight 131.00 lb Height 66 inches 5'6" BMI (Body Mass Index) 21.1 kg/m2 BP Systolic 152 mmHg BP Diastolic 93 mmHg Heart Rate 95 /min O2 % BldC Oximetry 97 % Body Temperature 98.3 F Pain Level 0 02/08/2019 8:26am Weight 127.00 lb Height 66 inches 5'6" BMI (Body Mass Index) 20.5 kg/m2 BP Systolic 128 mmHg BP Diastolic 83 mmHg Heart Rate 92 /min O2 % BldC Oximetry 96 % Body Temperature 97.8 F Pain Level 0 Results Description No Information Available Procedures Description No Information Available Medical Devices Description No Information Available Encounters Type Date Location Provider Dx Diagnosis Office Visit 02/08/2019 Main Office Aida Hobson, H61.23 Impacted cerumen, 8:30a 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
--- OUTSIDE RECORDS SUMMARY | 2019-05-26 07:20 | XMS REPORT | Continuity of Care Document ---
:1940 External Reference #:[id number] Author Name Caryn Huerta M.D. 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 Onset: 04/19/2019 Social History Type Date Description Comments Sex Unknown ETOH Use Rarely consumes alcohol Tobacco Use Start: Unknown Patient has never smoked Smoking Status Reviewed: 04/19/19 Patient has never smoked Exercise Type/Frequency Exercises regularly Allergies, Adverse Reactions, Alerts Active Allergies Reaction Severity Comments Date Naproxen swelling 04/19/2019 Medications Active Medications SIG Qnty Indications Ordering Provider Date Warfarin Sodium Unknown 2mg Tablets Simvastatin Take One Tablet By Unknown 20mg Mouth Every Day Tablets Prilosec OTC one tablet in am Unknown 20mg 1/[address] breakfast Aspirin 1 by mouth every Unknown 81mg Tablets DR day Calcium 600 Unknown Immunizations Description No Information Available Vital Signs Date Vital Result Comment 04/19/2019 10:48am Height 66 inches 5'6" Weight 130.00 lb Heart Rate 92 /min BP Systolic 124 mmHg BP Diastolic 90 mmHg Respiratory Rate 16 /min Body Temperature 97.1 F Pain Level 6 BMI (Body Mass Index) 21.0 kg/m2 Results Description No Information Available Procedures Description No Information Available Medical Devices Description No Information Available Encounters Description No Information Available Assessments Date Code Description Provider 04/19/2019 M25.562 Pain in left knee Caryn Huerta M.D. 04/19/2019 M25.462 Effusion, left knee Caryn Huerta M.D. 04/19/2019 M17.12 Unilateral primary osteoarthritis, left knee Caryn Huerta M.D. Plan of Treatment Future Appointment(s):05/15/2019 10:15 am - Caryn [facility] M.D. at [facility]04/19/2019 - Caryn Huerta M.D.M25.562 Pain in left kneeM25.462 Effusion, left kneeM17.12 Unilateral primary osteoarthritis, left kneeFollow up:Follow up: 7-10 days before surgery Functional Status Description No Information Available Mental Status Description No Information Available Referrals Description No Information Available
--- OUTSIDE RECORDS SUMMARY | 2019-05-26 07:20 | XMS REPORT | Continuity of Care Document ---
:1940 External Reference #:[id number] Author Name Michael Alanis DO Address [address] [place] [id number] Care Team Providers Name Role Phone Erica - Physical Care Team Information Medical Administrative Technician [phone] Therapist Problems Active Problems Provider Date Osteoarthritis of knee Michael Alanis DO Onset: 04/11/2014 Mixed hyperlipidemia Michael Alanis DO Onset: 04/04/2012 Gastroesophageal reflux disease Michael Alanis DO Onset: 04/04/2012 Atrial fibrillation Michael Alanis DO Onset: 04/04/2012 Pure hypercholesterolemia Onset: 10/09/2014 Peptic reflux disease Onset: 10/09/2014 Social History Type Date Description Comments Sex Unknown Tobacco Use Start: Unknown Never Smoked Cigarettes ETOH Use Denies alcohol use Recreational Drug Use Denies Drug Use Tobacco Use Start: Unknown Patient has never smoked Smoking Status Reviewed: 02/14/19 Patient has never smoked Allergies, Adverse Reactions, Alerts Active Allergies Reaction Severity Comments Date Naprosyn 04/04/2012 Medications Active Medications SIG Qnty Indications Ordering Provider Date Meclizine HCL 1-2 tabs by mouth 30tabs Michael Alanis, 03/06/2019 12.5mg every 6 hours as DO Tablets needed dizziness Omeprazole 1 by mouth every 90caps Michael Alanis, 04/04/2012 20mg other day DO Capsules DR Simvastatin 1 by mouth every 90tabs Michael Alanis, 20mg day DO Tablets Aspirin Adult Low 1 po 2X Weekly Unknown Strength 81mg Tablets DR Warfarin Sodium use as directed 30tabs Unknown 2mg Tablets Warfarin Sodium 1 po qd 30tabs Unknown 4mg Tablets [facility] Vitamin D3 1 po qd Unknown 1000Unit Capsules Calcium Carbonate 1 po qd Unknown 1500mg Tablets History Medications Nitrofurantoin 1 by mouth 14caps R30.0 Digpauly, 02/14/2019 - Macrocrystal twice a day CHRISTOPHER Betancur 02/21/2019 100mg for 7 days Capsules Azithromycin 2 by mouth x 6tabs Giuliano Alanisew, 12/22/2018 - 250mg 1, then 1 by 12/27/2018 Tablets mouth daily x 4 days Immunizations CPT Code Status Date Vaccine Reaction Lot # [id number] Given 03/27/2019 Flu Vaccine NOS 57690 Given 04/19/2018 Fluzone Highdose Age 65 And Over Preservative & Antibiotic Free 80479 Given 04/19/2017 Fluzone Highdose Age 65 And Over Preservative & Antibiotic Free 97084 Given 10/01/2016 Pneumococcal 23 Immunization Adult Or Immunosuppressed Patient 64134 Given 04/19/2016 Fluzone Highdose Age 65 And Over Preservative & Antibiotic Free 74348 Given 04/18/2015 Prevnar 13 Pneumococal Conjugate Vaccine GREEN POND 42324 Given 04/18/2015 Fluzone Highdose Age 65 And Over GREEN POND Preservative & Antibiotic Free 96179 Given 04/19/2014 Afluria Or Fluvirin Flu Vac Intramuscular 85092 Given 04/10/2013 Afluria Or Fluvirin Flu Vac Intramuscular 93255 Given 04/24/2012 Zoster (Zostavax) 26324 Given 04/04/2012 Afluria Or Fluvirin Flu Vac Intramuscular Vital Signs Date Vital Result Comment 05/12/2019 8:28am Weight 130.00 lb Heart Rate 72 /min BP Systolic 134 mmHg BP Diastolic 70 mmHg Respiratory Rate 18 /min Height 65 inches 5'5" BMI (Body Mass Index) 21.6 kg/m2 03/03/2019 8:29am Body Temperature 97.9 F Weight 130.00 lb Heart Rate 80 /min BP Systolic 136 mmHg BP Diastolic 74 mmHg Respiratory Rate 17 /min Height 65 inches 5'5" BMI (Body Mass Index) 21.6 kg/m2 Results Test Date Facility Test Result H/L Range Note CBS 04/26/2019 [facility] White Blood 4.5 K/uL Normal 3.1-10.7 1 W/Automated (315)- - Count Diff Red Blood Count 4.46 M/uL Normal 3.90-5.40 [...] 40.4-72.8 Lymph % 27.8 % Normal 20.0-42.0 Swift % 27.6 % High 4.3-13.2 Eo% 1.5 % Normal 0.0-6.6 Bas% 0.2 % Normal 0.0-1.1 Immature Grans 1.3 % Normal 0.0-5.0 NRBC % 0.0 /100WBC < 10/ 100 WBC Neut# 1.88 K/uL Normal 1.8-7.0 Lymph # 1.26 K/uL Normal 1.0-4.0 Swift # 1.25 K/uL High 0.3-0.9 Eos # 0.07 K/uL Normal 0.0-0.5 Baso # 0.01 K/uL Normal 0.0-0.1 Immature Grans Absolute 0.06 K/uL NRBC # 0.00 K/uL [facility] 04/26/2019 [facility] Glucose 78 mg/dL Normal 74-106 Metabolic Panel (315)- - BUN 15 mg/dL Normal 7-18 Creatinine 1.0 mg/dL Normal 0.6-1.3 Glom Filtration Rate, Estimate 57 mL/min >60 If >60 mL/min >60 2 BUN/Creat 15.0 ratio Sodium 141 mmol/L Normal [...] 12-78 Alkaline Phosphatase 69 U/L Normal 45-117 LDL Cholesterol 04/26/2019 [facility] Cholesterol 174 mg/ dL <200 3 Profile (315)- - Triglycerides 83 mg/dL <150 4 HDL Cholesterol 96 mg/dL >40 5 LDL-Cholesterol 61 mg/dL < 100 6 Laboratory 04/26/2019 [facility] Thyroid 1.44 uIU/mL Normal 0.30-4.20 test finding (315)- - Stim Hormone Laboratory 03/03/2019 [facility] 7 test finding Culture res <SEE NOTE> Laboratory 02/14/2019 [facility] 8 test finding Culture res <SEE NOTE> Blood Culture 12/13/2018 [facility] Blood NO GROWTH: 9, 10 (315)- - Culture FINAL <SEE Aerobic NOTE> Blood Culture Anaerobic NO GROWTH: FINAL <SEE NOTE> 11 Lactic Acid 12/13/2018 [facility] Lactic Acid 1.5 mmol/L Normal 0.4-1.9 12 (315)- - Lab Reflex >2.0 for Sepsis? Y Comprehensive Metabolic 12/13/2018 [facility] Glucose 128 mg/dL High 74-106 Panel (315)- - BUN 11 mg/dL Normal 7-18 Creatinine 1.0 mg/dL Normal 0.6-1.3 Glom Filtration Rate, Estimate 57 mL/min >60 If >60 mL/min >60 13 BUN/Creat 11.0 ratio Sodium 137 mmol/L Normal 136-145 Potassium 3.6 mmol/L Normal 3.5-5.1 Chloride 106 mmol/L Normal 98-107 Carbon Dioxide 23 mmol/L Normal 21-32 Anion Gap 8 mEq/L Normal 8-16 Calcium 8.0 mg/dL Low 8.5-10.1 Total Protein 6.9 g/dL Normal 6.4-8.2 Albumin 3.5 g/dL Normal 3.4-5.0 Globulin 3.4 g/dL Normal 1.9-4.3 Alb/Glob 1.0 ratio Bilirubin,Total 0.7 mg/dL Normal 0.2-1.0 Sgot/Ast 20 U/L Normal 15-37 SGPT/Alt 19 U/L Normal 12-78 Alkaline Phosphatase 67 U/L Normal 45-117 Laboratory test 12/13/2018 [facility] Troponin-I < 0.015 14 finding (315)- - ng/mL CBS W/Automated 12/13/2018 [facility] White Blood 4.9 K/ uL Normal 3.1-1 Diff (315)- - Count 0.7 Red Blood Count 3.94 M/uL Normal 3.90-5.40 Hemoglobin 12.7 gm/dL Normal 11.6-15.8 Hematocrit 38.4 % Normal 36.0-46.1 Mean Cell Volume 97.5 fl Normal 80.9-99.0 Mean Corpuscular HGB 32.2 pg Normal 25.9-32.7 Mean Corpuscular HGB Conc 33.1 g/dL Normal 30.8-34.3 Platelet Count 121 K/uL Low 155-360 Red Cell Distri Width SD 49.1 fl High 36-47 Red Cell Distri Width %CV 13.5 % Normal 11.7-14.4 Mean Platelet Volume 11.1 fl Normal 8.9-12.4 Neut% 50.0 % Normal 40.4-72.8 Lymph % 16.6 % Low 20.0-42.0 Swift % 31.0 % High 4.3-13.2 Eo% 0.2 % Normal 0.0-6.6 Bas% 0.2 % Normal 0.0-1.1 Immature Grans 2.0 % Normal 0.0-5.0 NRBC % 0.0 /100WBC < 10/ 100 WBC Neut# 2.46 K/uL Normal 1.8-7.0 Lymph # 0.82 K/uL Low 1.0-4.0 Swift # 1.53 K/uL High 0.3-0.9 Eos # 0.01 K/uL Normal 0.0-0.5 Baso # 0.01 K/uL Normal 0.0-0.1 Immature Grans Absolute 0.10 K/uL NRBC # 0.00 K/uL Slide Review 12/13/2018 [facility] Slide Review DIFF ORDERED (315)- - Differential-WBC 12/13/2018 [facility] Total Cells 100 # CELLS Confirm (315)- - Counted Band% 4 % Normal 0-8 Neutrophils% 51 % Normal 33-73 Lymph% 5 % Low 20-42 Atypical Lymph% 9 % High 0-7 Monocyte% 31 % High 0-10 Platelet Estimate SLIGHT DECREASE RBC Morphology NORMAL Blood Culture 12/13/2018 [facility] Blood Culture NO GROWTH: 15, 16 (315)- - Aerobic FINAL <SEE NOTE> Blood Culture Anaerobic NO GROWTH: FINAL <SEE NOTE> 17 Arterial Blood Gas 12/13/2018 [facility] Allens Test YES 18 (315)- - Performed? Arterial Blood Gas pH 7.47 High 7.35-7.45 Arterial Blood Gas Pco2 32 mmHg Low 35-45 Arterial Blood Gas Po2 60 mmHg Low 80-105 ABG Hco3 23 mEq/L Normal 22-26 ABG Base Excess 0 mEq/L Normal -2-2 ABG O2 Saturation 92 % Normal 90-99 Arterial Blood Gas Type ROOM AIR Arterial Blood Gas Fio2 21 % Normal 20-101 Arterial Blood Gas Site [facility].ART. 1 I48.1, Z79.01 (E78.2) 2 Note: Persistent reduction for 3 months or more in an eGFR <60 mL/min/1.73 m2 defines CKD. Patients with eGFR values >/=60 mL/min/1.73 m2 may also have CKD if evidence of persistent proteinuria is present. The original MDRD equation for estimated GFR is not valid for patients less than 18 years of age. Additional information may be found at www.kdoqi.org. 3 Reference Guidelines*: Desirable: ........... < 200 mg/dL Borderline High: ..... 200-239 mg/dL High: ................ >= 240 mg/dL * The National Cholesterol Education Program (NCEP) 4 Reference Guidelines*: Normal: ............. < 150 mg/dL Borderline High: .... 150-199 mg/dL High: ............... 200-499 mg/dL Very High: .......... > 500 mg/dL * Source: National Cholesterol Education Program (NCEP) 5 Reference Guidelines*: Low HDL: ..... < 40 mg/dL Normal: ..... 40-60 mg/dL Desirable: ... > 60 mg/dL *The National Cholesterol Education Program(NCEP) 6 Reference Guidelines*: Optimal:........... <100 mg/dL Near Optimal....... 100-129 mg/dL Borderline High.... 130-159 mg/dL High............... 160-189 mg/dL Very High.......... >=190 mg/dL * Source: National Cholesterol Education Program (NCEP) 7 Microbiology results SOURCE Clean Catch Midstream FINAL RESULT No growth 8 Microbiology results SOURCE Clean Catch Midstream FINAL RESULT <10,000 CFU/ML Urethral more consistent with contamination. No further workup. 9 PNEUMONIA 10 NO GROWTH: FINAL REPORT 11 NO GROWTH: FINAL REPORT 12 COUGH 13 Note: Persistent reduction for 3 months or more in an eGFR <60 mL/min/1.73 m2 defines CKD. Patients with eGFR values >/=60 mL/min/1.73 m2 may also have CKD if evidence of persistent proteinuria is present. The original MDRD equation for estimated GFR is not valid for patients less than 18 years of age. Additional information may be found at www.kdoqi.org. 14 0.0 - 0.045 ng/mL: Normal 0.046 - 0.5 ng/mL: Suggestive 0.6 - 1.5 ng/mL: Consistent 15 PNEUMONIA 16 NO GROWTH: FINAL REPORT 17 NO GROWTH: FINAL REPORT 18 COUGH Procedures Date Code Description Status 12/26/2018 83488 Measure Blood Oxygen Level Single Determination Completed 01/15/2016 52544855 Colonoscopy Completed Medical Devices Description No Information Available Encounters Type Date Location Provider Dx Diagnosis Office Visit 03/03/2019 Michael Avalos DO H81.13 Benign paroxysmal 8:30a vertigo, bilateral R35.0 Frequency of micturition Office Visit 02/14/2019 11:00a [facility], Gypsy, [employer] REP R30.0 Dysuria Assessments Date Code Description Provider 05/12/2019 Z01.810 Encounter for preprocedural Michael Alanis DO cardiovascular examination 05/12/2019 M17.9 Osteoarthritis of knee, unspecified Michael Alanis, DO 05/12/2019 I48.20 Chronic atrial fibrillation, unspecified Michael Alanis, DO 05/12/2019 E78.2 Mixed hyperlipidemia Michael Alanis, DO 05/12/2019 R14.1 Gas pain Michael Alanis, DO 05/12/2019 Z95.0 Presence of cardiac pacemaker Michael Alanis, DO 05/12/2019 K21.9 Gastro-esophageal reflux disease without AlanisMichael, DO esophagitis 05/12/2019 Q21.1 Atrial septal defect Michael Alanis, DO 05/12/2019 M79.673 Pain in unspecified foot Michael Alanis, DO 05/12/2019 R05 Cough Michael Alanis, DO 03/03/2019 H81.13 Benign paroxysmal vertigo, bilateral Michael Alanis, DO 03/03/2019 R35.0 Frequency of micturition Mcihael Alanis, DO 03/03/2019 R35.0 Frequency of micturition [facility] 02/14/2019 R30.0 Dysuria [facility], Gypsy, SALES SERVICE REP 02/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 R30.0 Dysuria [facility] 12/26/2018 J20.9 Acute bronchitis, unspecified Patricia Lombardi PA 12/26/2018 I48.2 Chronic atrial fibrillation Patricia Lombardi PA 12/26/2018 R91.8 Other nonspecific abnormal finding of Patricia Lombardi PA lung field Plan of Treatment Future Appointment(s):11/15/2019 8:45 am - [facility]05/12/2019 - Michael Alanis, Z01.810 Encounter for preprocedural cardiovascular kbpxewrjjwdW68.9 Osteoarthritis of knee, yvrtawycxesI44.20 Chronic atrial fibrillation, unspecifiedFollow up:Blood work in 6 months and will follow up with me a couple of days later.E78.2 Mixed hyperlipidemiaNew Labs:CBC with Auto Diff-fcmg, Ordered: 05/12/19Comprehensive Metabolic-RL, Ordered: 05/12/19TSH, Ordered: 05/12/19Lipid, Ordered: 10/18/19Comments:Condition reviewed with the patient in detail. LDL is well controlled.-Advised the patient to continue Simvastatin 20 mg.-Encouraged the patient to decrease the total amount of fat. Choose lean meats, fat free or 1% fat milk, and low-fat dairy products such as yogurt and cheese.-Encouraged the patient to replace unhealthy fats with healthy fats.-Encouraged the patient to eat foods high in fiber.-Adriana recheck it during next blood draw.R14.1 Gas painZ95.0 Presence of cardiac xtupwzvdjC38.9 Gastro-esophageal reflux disease without zjtsollforcQ60.1 Atrial septal tvbpqvF86.673 Pain in unspecified footR05 Cough Functional Status Description No Information Available Mental Status Description No Information Available Referrals Description No Information Available
--- OUTSIDE RECORDS SUMMARY | 2019-05-26 07:20 | XMS REPORT | Continuity of Care Document ---
:1940 External Reference #:[id number] Author Name Solomon Arevalo M.D., [facility] Address [address] [place] [address] Care Team Providers Name Role Phone Roderick Armas MD - Clinical Care Team Information Automatic Serging Machine Operator Cardiac Electrophysiology Michael Alanis DO - Family Medicine Care Team Information Automatic Serging Machine Operator [phone] Waqar Hale MD - Cardiovascular Care Team Information Automatic Serging Machine Operator Disease Problems Active Problems Provider Date Atrial fibrillation Solomon Arevalo M.D., Onset: 01/06/2011 [facility] Hyperlipidemia Solomon Arevalo M.D., Onset: 03/05/2011 [facility] Atrial flutter Araceli Hopper, JACQUE, Onset: 09/08/2011 ACCOUNT RESOLUTION EXPERT Dizziness and giddiness Araceli Hopper, JACQUE, Onset: 11/10/2011 ACCOUNT RESOLUTION EXPERT Cardiac pacemaker in situ Araceli Hopper, JACQUE, Onset: 10/04/2012 ACCOUNT RESOLUTION EXPERT Anticoagulant agent Araceli Hopper, JACQUE, Onset: 10/04/2012 ACCOUNT RESOLUTION EXPERT Complete atrioventricular block Solomon Arevalo M.D., Onset: 10/25/2012 [facility] Primary cardiomyopathy Solomon Arevalo M.D., Onset: 01/03/2015 [facility] Ostium secundum type atrial septal Solomon Arevalo M.D., Onset: 2014 defect [facility] Cardiomyopathy, unspecified TTM Check Onset: 05/22/2015 Left bundle branch block Roderick Lanza MD Onset: 10/04/2014 Congestive heart failure Roderick Lanza MD Onset: 10/04/2014 Sinus node dysfunction Roderick Lanza MD Onset: 09/20/2012 Preoperative cardiovascular Solomon Arevalo M.D., Onset: 04/28/2019 examination FACC Chronic atrial fibrillation Solomon Arevalo M.D., Onset: 03/19/2017 [facility] Paroxysmal atrial fibrillation Solomon Arevalo M.D., Onset: 03/13/2016 [facility] Social History Type Date Description Comments Sex [...] hour prior to JACQUE Bass, Capsules procedures ACCOUNT RESOLUTION EXPERT Aspirin 1 po 2x weekly Mickey, 10/25/2012 81mg Tablets Solomon Shields M.D., FACC Simvastatin 1 po qd 90tabs Araceli Hopper 06/16/2010 20mg JACQUE Bass, Tablets ACCOUNT RESOLUTION EXPERT Multivitamins 1 po qd Unknown Tablets Prilosec 1 po qod 30caps Unknown 20mg Capsules DR Warfarin Sodium 1-2 tabs by mouth 120tabs I48.0 Mickey, 2mg every day Solomon M., M.D., Tablets alternating days FACC Calcium po qd Unknown 600Unit Tablets Tylenol as needed Unknown 325mg Tablets Albuterol Sulfate nebulized every 4 Unknown hours as needed (2.5mg/3ML) 0.083% Nebulizer Immunizations CPT Code Status Date Vaccine Lot # [id number] Given 05/23/2002 flu vaccination 96222 Given 05/10/2001 Pneumovax Injection 58765 Given 05/10/2001 flu vaccination 29148 Given 05/17/2000 flu vaccination 26201 Given 05/07/1999 Influenza Virus Vaccine 26497 Given 05/07/1999 Influenza Virus Whole 01553 Given 05/17/1998 Influenza Virus Vaccine 43869 Given 05/02/1997 Influenza Virus Vaccine 07300 Given 04/12/1997 Tetnus Injection Vital Signs Date Vital Result Comment 04/28/2019 10:22am BP Systolic Sitting Right Arm 128 mmHg BP Diastolic Sitting Right Arm 86 mmHg Heart Rate 77 /min Respiratory Rate 18 /min Height 66 inches 5'6" Weight 129.00 lb BMI (Body Mass Index) 20.8 kg/m2 BSA (Body Surface Area) 1.66 m2 Brandon body weight in kilograms 59 kg O2 % BldC Oximetry 99 % Ora 12/16/2018 1:10pm BP Systolic Sitting Left Arm 112 mmHg BP Diastolic Sitting Left Arm 60 mmHg Heart Rate 78 /min Respiratory Rate 15 /min Height 66 inches 5'6" Weight 132.00 lb BMI (Body Mass Index) 21.3 kg/m2 BSA (Body Surface Area) 1.68 m2 Brandon body weight in kilograms 59 kg O2 Saturation Level with Exercise 94 % Results Test Date Facility Test Result H/L Range Note Protime 04/26/2019 [facility] Protime 34.6 seconds High 12.0-14.4 1 [address] [place], [place] [id number] [phone] Inr 3.3 High 0.9-1.1 2 Anticoagulant Therapy? YES Date of Last Dose: T-1 Time of Last Dose: 1830 CBC W/Automated 04/26/2019 [facility] White Blood 4.5 K/uL Normal 3.1-10.[address] Count [place], [place] [address] [phone] Red Blood Count 4.46 M/uL Normal 3.90-5.40 [...] 40.4-72.8 Lymph % 27.8 % Normal 20.0-42.0 Giles % 27.6 % High 4.3-13.2 Eo% 1.5 % Normal 0.0-6.6 Bas% 0.2 % Normal 0.0-1.1 Immature Grans 1.3 % Normal 0.0-5.0 NRBC % 0.0 /100WBC < 10/ 100 WBC Neut# 1.88 K/uL Normal 1.8-7.0 Lymph # 1.26 K/uL Normal 1.0-4.0 Giles # 1.25 K/uL High 0.3-0.9 Eos # 0.07 K/uL Normal 0.0-0.5 Baso # 0.01 K/uL Normal 0.0-0.1 Immature Grans Absolute 0.06 K/uL NRBC # 0.00 K/uL [facility] 04/26/2019 [facility] Glucose 78 mg/dL Normal 74-106 Metabolic Panel [address] [place] [address] [phone] BUN 15 mg/dL Normal 7-18 Creatinine 1.0 mg/dL Normal 0.6-1.3 Glom Filtration Rate, Estimate 57 mL/min >60 If >60 mL/min >60 3 BUN/Creat 15.0 ratio Sodium 141 mmol/L Normal [...] Phosphatase 69 U/L Normal 45-117 LDL Cholesterol Profile 04/26/2019 [facility] Cholesterol 174 mg/dL <200 4 [address] [place], [place] [id number] [phone] Triglycerides 83 mg/dL <150 5 HDL Cholesterol 96 mg/dL >40 6 LDL-Cholesterol 61 mg/dL < 100 7 Laboratory test 04/26/2019 [facility] Thyroid 1.44 uIU/mL Normal 0.30-4.[address] [place] [address] Hormone [phone] Protime 04/12/2019 [facility] Protime 30.6 High 12.0-14.[address] seconds [place], [place] [address] [phone] Inr 2.9 High 0.9-1.1 9 Anticoagulant Therapy? YES Date of Last Dose: T-1 Time of Last Dose: 1929 Protime 04/05/2019 [facility] Protime 26.3 seconds High 12.0-14.4 [address] [place], [place] [address] [phone] Inr 2.4 High 0.9-1.1 10 Anticoagulant Therapy? YES Date of Last Dose: [id number] Time of Last Dose: 1829 Protime 03/29/2019 [facility] Protime 38.4 seconds High 12.0-14.4 [address] [place] [address] [phone] Inr 3.8 High 0.9-1.1 11 Anticoagulant Therapy? YES Date of Last Dose: T-1 Time of Last Dose: 1829 Protime 03/13/2019 [facility] Protime 24.8 seconds High 12.0-14.4 12 [address] [place] [address] [phone] Inr 2.2 High 0.9-1.1 13 Anticoagulant Therapy? YES Date of Last Dose: T-1 Time of Last Dose: 1830 Protime 03/06/2019 [facility] Protime 32.2 seconds High 12.0-14.4 [address] [place] [address] [phone] Inr 3.1 High 0.9-1.1 14 Anticoagulant Therapy? YES Date of Last Dose: T-1 Time of Last Dose: 2100 Protime 02/27/2019 [facility] Protime 26.7 seconds High 12.0-14.4 [address] [place] [address] [phone] Inr 2.4 High 0.9-1.1 15 Anticoagulant Therapy? YES Date of Last Dose: 02/26/19 Time of Last Dose: 1845 Protime 02/20/2019 [facility] Protime 36.7 seconds High 12.0-14.4 16 [address] [place] [address] [phone] Inr 3.6 High 0.9-1.1 17 Anticoagulant Therapy? YES Date of Last Dose: 02/19/19 Time of Last Dose: 630PM Protime 02/06/2019 [facility] Protime 29.8 seconds High 12.0-14.4 [address] [place] [address] [phone] Inr 2.8 High 0.9-1.1 18 Anticoagulant Therapy? YES Date of Last Dose: T-1 Time of Last Dose: 1830 Protime 01/05/2019 [facility] Protime 27.0 seconds High 12.0-14.4 [address] [place] [address] [phone] Inr 2.5 High 0.9-1.1 19 Anticoagulant Therapy? YES Date of Last Dose: T-1 Time of Last Dose: 1830 Protime 12/29/2018 [facility] Protime 29.6 seconds High 12.0-14.4 [address] [place] [address] [phone] Inr 2.8 High 0.9-1.1 20 Anticoagulant Therapy? YES Date of Last Dose: 081414 Time of Last Dose: 2100 Protime 12/23/2018 [facility] Protime 20.8 seconds High 12.0-14.4 [address] [place] [address] [phone] Inr 1.8 High 0.9-1.1 21 Anticoagulant Therapy? YES Date of Last Dose: 12/21/18 Time of Last Dose: 1830 Protime 12/16/2018 [facility] Protime 17.9 seconds High 12.0-14.4 [address] [place] [address] [phone] Inr 1.5 High 0.9-1.1 22 Anticoagulant Therapy? YES Date of Last Dose: 12-13-18 Time of Last Dose: 1830 Automated blood 12/14/2018 N2N/CCD Import Automated blood 0.64 Low 1.0- 4.0 lymphocyte count lymphocyte count (number/volume) (number/volume) Blood monocytes 12/14/2018 N2N/CCD Import Blood monocytes [...] calcium (mass/volume) measurement (mass/volume) CBC W/Automated 12/14/2018 [facility] White Blood Count 6.5 Normal 3.1-10.[address] K/[place] [address] [phone] Red Blood Count 3.62 M/uL Low 3.90-5.40 [...] 40.4-72.8 Lymph % 9.8 % Low 20.0-42.0 Giles % 44.2 % High 4.3-13.2 Eo% 0.0 % Normal 0.0-6.6 Bas% 0.2 % Normal 0.0-1.1 Immature Grans 2.3 % Normal 0.0-5.0 NRBC % 0.0 /100WBC < 10/ 100 WBC Neut# 2.84 K/uL Normal 1.8-7.0 Lymph # 0.64 K/uL Low 1.0-4.0 Giles # 2.88 K/uL High 0.3-0.9 Eos # 0.00 K/uL Normal 0.0-0.5 Baso # 0.01 K/uL Normal 0.0-0.1 Immature Grans Absolute 0.15 K/uL NRBC # 0.00 K/uL Protime 12/14/2018 [facility] Protime 41.6 seconds High 12.0-14.4 [address] [place], [place] [address] [phone] Inr 4.2 High 0.9-1.1 24 Basic Metabolic Panel 12/14/2018 [facility] Glucose 98 mg/dL Normal 74-106 [address] [place], [place] [address] [phone] BUN 17 mg/dL Normal 7-18 Creatinine 0.8 [...] 360 platelet count platelet count (count/volume) (count/volume) Absolute neutrophil 12/14/2018 N2N/CCD Import Absolute 2.84 [...] measurement (ma measurement (mass/volume) Blood Culture 12/13/2018 [facility] Blood Culture NO [address] Aerobic GROWTH: JONATHON Burrell [address] FINAL [phone] <SEE NOTE> Blood Culture Anaerobic NO GROWTH: [...] Determination of 12/13/2018 N2N/CCD Import Determination of -1 inhaled oxygen inhaled oxygen 01 concentration (vol concentration (volume fraction) Arterial blood gas 12/13/2018 N2N/CCD Import Arterial blood gas R.Brac.Art. measurement measurement Protime 12/13/2018 [facility] Protime 34.2 [address] 12[address] seconds -[address]. [place] [address] 4 [phone] Inr 3.3 High 0.9-1.1 28 Aerobic blood 12/13/2018 N2N/CCD Import Aerobic blood No Growth culture culture Anaerobic blood 12/13/2018 N2N/CCD Import Anaerobic blood No Growth culture culture Blood Culture 12/13/2018 [facility] Blood Culture NO GROWTH: [address] Aerobic FINAL <[place] [address] NOTE> [phone] Blood Culture Anaerobic NO GROWTH: FINAL <SEE [...] Protime 28.9 seconds High 12. 31 [address] [facility] [facility] [address] [place] [address] 4.4 [phone] Inr 2.7 High 0.9-1.1 32 Anticoagulant Therapy? YES Date of Last Dose: [id number] Time of Last Dose: 1830 Protime 11/28/2018 [facility] Protime 22.9 seconds High 12.0-14.[address] [place] [address] [phone] Inr 2.0 High 0.9-1.1 33 Anticoagulant Therapy? YES Date of Last Dose: T-1 Time of Last Dose: 1930 Protime 11/21/2018 [facility] Protime 42.2 seconds High 12.0-14.4 [address] [place] [address] [phone] Inr 4.3 High 0.9-1.1 34 Anticoagulant Therapy? YES Date of Last Dose: T-1 Time of Last Dose: 2029 Serum or plasma 11/01/2018 N2N/CCD Import Serum [...] (units/vol (units/volume) 1 I48.1, Z79.01 (E78.2) 2 THERAPEUTIC INR RANGE: 2.0 - 3.0 DVT, Pulmonary embolus, prophylaxis against venous thrombosis or systemic embolization in high risk patients. 2.5 - 3.5 Mechanical heart valves 3 Note: Persistent reduction for 3 months or more in an eGFR <60 mL/min/1.73 m2 defines CKD. Patients with eGFR values >/=60 mL/min/1.73 m2 may also have CKD if evidence of persistent proteinuria is present. The original MDRD equation for estimated GFR is not valid for patients less than 18 years of age. Additional information may be found at www.kdoqi.org. 4 Reference Guidelines*: Desirable: ........... < 200 mg/dL Borderline High: ..... 200-239 mg/dL High: ................ >= 240 mg/dL * The National Cholesterol Education Program (NCEP) 5 Reference Guidelines*: Normal: ............. < 150 mg/dL Borderline High: .... 150-199 mg/dL High: ............... 200-499 mg/dL Very High: .......... > 500 mg/dL * Source: National Cholesterol Education Program (NCEP) 6 Reference Guidelines*: Low HDL: ..... < 40 mg/dL Normal: ..... 40-60 mg/dL Desirable: ... > 60 mg/dL *The National Cholesterol Education Program(NCEP) 7 Reference Guidelines*: Optimal:........... <100 mg/dL Near Optimal....... 100-129 mg/dL Borderline High.... 130-159 mg/dL High............... 160-189 mg/dL Very High.......... >=190 mg/dL * Source: National Cholesterol Education Program (NCEP) 8 I48.1, Z79.01 9 THERAPEUTIC INR RANGE: [...] valves Procedures Date Code Description Status 04/28/2019 91972 EKG-Tracing And Report Completed 04/11/2019 99335 Cardioversion/Defibril. Multiple Lead Pacemaker Completed 01/18/2019 27047 Echocardiogram Complete Completed 12/14/2018 46934 EKG Interpretation And Report Only Completed 11/16/2018 20473 Pacemaker/Cardio-Defibrillator Remote Data Acquistion Completed 11/16/2018 17059 Remote Icd Monitor Completed Medical Devices Description No Information Available Encounters Type Date Location Provider Dx Diagnosis Office Visit 04/28/2019 Cardiology Office Solomon Arevalo I48.0 Paroxysmal atrial 10:20a MAlyson UriasD., [facility] fibrillation I44.2 Atrioventricular block, complete I42.9 Cardiomyopathy, unspecified Q21.1 Atrial septal defect Z01.810 Encounter for preprocedural cardiovascular examination Office Visit 12/16/2018 1:20p Cardiology Office Obed, I48.0 Paroxysmal atrial Marlyss B., [place] fibrillation I42.9 Cardiomyopathy, unspecified I44.2 Atrioventricular block, complete Z95.810 Presence of automatic (implantable) cardiac defibrillator Q21.1 Atrial septal defect Assessments Date Code Description Provider 04/28/2019 I48.0 Paroxysmal atrial fibrillation Solomon Arevalo M.D., [facility] 04/28/2019 I44.2 Atrioventricular block, complete Solomon Arevalo M.D., [facility] 04/28/2019 I42.9 Cardiomyopathy, unspecified Solomon Arevalo M.D., [facility] 04/28/2019 Q21.1 Atrial septal defect Solomon Arevalo M.D., [facility] 04/28/2019 Z01.810 Encounter for preprocedural Solomon Arevalo M.D., cardiovascular examination [facility] 04/11/2019 I42.9 Cardiomyopathy, unspecified Solomon Arevalo M.D., [facility] 04/11/2019 I42.9 Cardiomyopathy, unspecified Manish Clay, [place] 04/11/2019 I48.0 Paroxysmal atrial fibrillation Solomon Arevalo M.D., [facility] 04/11/2019 I48.0 Paroxysmal atrial fibrillation Manish Clay., PA 04/11/2019 I44.2 Atrioventricular block, complete Solomon Arevalo M.D., [facility] 04/11/2019 I44.2 Atrioventricular block, complete Manish Clay B., PA 04/11/2019 Z95.810 Presence of automatic (implantable) Solomon Arevalo M.D., cardiac defibrillator [facility] 04/11/2019 Z95.810 Presence of automatic (implantable) Manish Clay B., PA cardiac defibrillator 01/18/2019 I42.9 Cardiomyopathy, unspecified Kal Celis MD 12/16/2018 I48.0 Paroxysmal atrial fibrillation ObedVictorina guevaras B., PA 12/16/2018 I42.9 Cardiomyopathy, unspecified ObedVictorina guevaras B., PA 12/16/2018 I44.2 Atrioventricular block, complete Victorina Clays B., PA 12/16/2018 Z95.810 Presence of automatic (implantable) Darcy Claylyss B., PA cardiac defibrillator 12/16/2018 Q21.1 Atrial septal defect ObedDarcy guevaralyss B., PA 12/14/2018 J20.9 Acute bronchitis, unspecified Roder, Ellie, SOLDER TECHNICIAN 12/14/2018 J96.21 Acute and chronic respiratory failure Solomon Arevalo M.D., with hypoxia [facility] 12/14/2018 J96.01 Acute respiratory failure with Roder, Ellie, SOLDER TECHNICIAN hypoxia 12/14/2018 I51.7 Cardiomegaly Solomon Arevalo M.D., [facility] 12/14/2018 D72.821 Monocytosis (symptomatic) Roder, Ellie, SOLDER TECHNICIAN 12/14/2018 I44.2 Atrioventricular block, complete Solomon Arevalo M.D., [facility] 12/14/2018 Z86.79 Personal history of other diseases of Roder, Ellie, SOLDER TECHNICIAN the circulatory system 12/14/2018 Z95.810 Presence of automatic (implantable) Solomon Arevalo M.D., cardiac defibrillator [facility] 12/13/2018 J20.9 Acute bronchitis, unspecified Roder, Ellie, SOLDER TECHNICIAN 12/13/2018 J96.01 Acute respiratory failure with Roder, Ellie, SOLDER TECHNICIAN hypoxia 12/13/2018 D72.821 Monocytosis (symptomatic) Roder, Ellie, SOLDER TECHNICIAN 12/13/2018 Z86.79 Personal history of other diseases of Roder, Ellie, SOLDER TECHNICIAN the circulatory system 11/16/2018 I48.0 Paroxysmal atrial fibrillation Solomon Arevalo M.D., [facility] 11/16/2018 I48.0 Paroxysmal atrial fibrillation TTM Check 11/16/2018 I44.2 Atrioventricular block, complete Solomon Arevalo M.D., [facility] 11/16/2018 I44.2 Atrioventricular block, complete TTM Check 11/16/2018 I42.9 Cardiomyopathy, unspecified Solomon Arevalo M.D., [facility] 11/16/2018 I42.9 Cardiomyopathy, unspecified TTM Check 11/16/2018 Z95.810 Presence of automatic (implantable) Solomon Arevalo M.D., cardiac defibrillator [facility] 11/16/2018 Z95.810 Presence of automatic (implantable) TTM Check cardiac defibrillator Plan of Treatment Future Appointment(s):10/30/2019 10:00 am - Araceli Hopper, JACQUE, ACCOUNT RESOLUTION EXPERT at Cardiology [id number]/09/2019 8:00 am - TTM Check at Cardiology [id number]/28/2019 - Solomon Arevalo M.D., FACCI48.0 Paroxysmal atrial fibrillationComments: She is currently in SR or atrial pacing. She needs to continue OAC. Not a candidate for Watchman.I44.2 Atrioventricular block, completeComments:She is pacer dependent. Pacing V 100% with very rare and very brief muscle stimulation. No changes will be introduced now. She will call if the problem [id number] Cardiomyopathy, unspecifiedComments:Secondary to 100% RV pacing. Recovered [...]
--- OUTSIDE RECORDS SUMMARY | 2019-05-26 07:20 | XMS REPORT | Continuity of Care Document ---
:1940 External Reference #:[id number] Author Name Aida Hobson NP Address [address] [place] [address] Care Team Providers Name Role Phone Jacques Alanis DO Care Team Information Client Resolution Specialist [phone] Problems Active Problems Provider Date Bilateral tinnitus [...] 1 po qod Unknown 20mg Capsules DR Avila Description No Information Available Vital Signs Date [...] 0 Results Description No Information Available Procedures Date Code Description Status 04/03/2019 30241 Tympanometry Completed 04/03/2019 92550 Audiometry, Comprehensive Completed Medical Devices Description No Information Available Encounters Type Date Location Provider Dx Diagnosis Office Visit 04/03/2019 Main Office Aida Hobson, H93.13 Tinnitus, bilateral 9:15a DERRICK CAR OPERATOR Office Visit 02/08/2019 Main Office Aida Hobson, H61.23 Impacted cerumen, 8:30a DERRICK CAR OPERATOR bilateral H93.13 Tinnitus, bilateral Assessments Date Code Description Provider 04/03/2019 H93.13 Tinnitus, bilateral Aida Hobson, CHRISTOPHER 02/08/2019 H61.23 Impacted cerumen, bilateral Aida Hobson, DERRICK CAR OPERATOR 02/08/2019 H93.13 Tinnitus, bilateral Aida Hobson, DERRICK CAR OPERATOR Plan of Treatment No Information Available Functional Status Description No Information Available Mental Status Description No Information Available Referrals Description No Information Available
[2019-05-26] MEDS ORDERED: ceFAZolin 2 GM in NS PREMIX(*) 2 GM/100 ML BAG IVPB ONE (07:38)
[2019-05-26] MEDS ORDERED: Acetaminophen TAB* 325 MG ONE (07:38)
[2019-05-26 08:15] LABS: INR 1.09 (0.82-1.09)
[2019-05-26] MEDS ORDERED: PROCHLORPERAZINE INJ 5 MG/ML 2 ML VIAL IV PRN ×2 (08:28→18:18)
[2019-05-26] MEDS ORDERED: Naloxone* 0.4 MG/ML 1 ML VIAL IV PRN (08:28)
[2019-05-26] MEDS ORDERED: HYDROmorphone INJ1* 1 MG/ML SYRINGE IV PRN (08:28)
[2019-05-26] MEDS ORDERED: Ondansetron INJ* 2 MG/ML VIAL IV PRN ×2 (08:28→12:27)
[2019-05-26] MEDS ORDERED: oxyCODONE TAB* 5 MG TAB PO PRN ×2 (08:28→12:27)
[2019-05-26] MEDS ORDERED: Midazolam* 1 MG/ML 2 ML VIAL (2 MG) ONE (08:42)
[2019-05-26] MEDS ORDERED: fentaNYL* 50 MCG/ML 2 ML VIAL (100 MCG VIAL) ONE ×2 (08:43→09:25)
[2019-05-26] MEDS ORDERED: Propofol* 500 MG/50 ML BTL ONE (08:43)
[2019-05-26] MEDS ORDERED: ROPIVACAINE 5 MG/ML 30 ML BTL (0.5%) ONE ×2 (08:44→08:54)
[2019-05-26] MEDS ORDERED: Phenylephrine 40 MCG/ML SYRINGE ONE (10:24)
[2019-05-26] MEDS ORDERED: Ondansetron ODT TAB* 4 MG PO PRN (12:27)
[2019-05-26] MEDS ORDERED: diPHENhydraMINE IV* 50 MG/ML 1 ml VIAL (BENADRYL) IV PRN (12:27)
[2019-05-26] MEDS ORDERED: Magnesium Hydroxide LIQ* 30 ML UDC PO PRN (12:27)
[2019-05-26] MEDS ORDERED: diPHENhydraMINE PO* 25 MG PO PRN (12:27)
[2019-05-26] MEDS ORDERED: Morphine INJ* 2 MG/ML 1 ML SYRINGE (TWO MG - NEW SYRINGE VERSION) IV PRN (12:27)
[2019-05-26] MEDS ORDERED: oxyCODONE/Acetamin 5/325 MG* TAB PO PRN (12:27)
[2019-05-26] MEDS ORDERED: Cyclobenzaprine TAB* 10 MG PO PRN (12:27)
[2019-05-26] MEDS ORDERED: Temazepam CAP* 15 MG PO PRN (12:27)
[2019-05-26] MEDS ORDERED: Polyethylene Glycol 3350* 17 GM PACKET PO PRN (12:27)
[2019-05-26] MEDS: Lactated Ringers 1000 ML Bag* 1,000 ML IV SCH ×2 (13:35→19:40)
[2019-05-26] MEDS: traMADol TAB* 50 MG PO PRN (15:23)
--- NOTE | 2019-05-26 16:17 | PN ---
Progress Note - Progress Note Date of Service: 05/26/19 - Post-op Note: Patient resting in joint chair breathing easily. Her pain is well controlled with oral medication at this point. No CP, or SOB. She complains of shivering and feeling chilled. Her temp is 97.3. She has not been OOB with PT yet. She actively DF/PF with intact sensation and 2+ DP pulse. Warm blankets were placed around the patient's back and legs. Hospitalist will be made aware. Continue pain management and PT.
--- NOTE | 2019-05-26 16:58 | OP ---
Operative Report - Blank - Operative Report Date of Operation: 05/26/19 Note: YURI ALDRICH 1940 Date of Surgery: Caryn Huerta MD Steeple Jack: Selina MARTINEZ did help throughout the procedure with preparation of the knee, wound retraction, manipulation of the knee, and wound closure. Anesthesiologist: Uriel HUNTER Anesthesia Type: Spinal Preoperative Diagnosis: Left severe degenerative osteoarthritis of the knee Postoperative Diagnosis: As above Procedure Performed: Left Total Knee Arthroplasty Tourniquet time: 59 minutes Complications: None Specimen: Bone and cartilage from the left knee joint sent to pathology. Hardware Used: Cemented Cel[employer]hew total knee hardware was used - For the femur a size 5 left narrow legion posterior stabilized femoral component, for the tibia a size 3 left elyse II tibial baseplate, for the insert a size 9mm 3 -4 posterior stabilized articular polyethylene insert, and for the patella a size 29 3-peg all poly patella. Brief History/Indication: YURI ALDRICH was known in clinic and had a history of severe left knee pain and swelling. She failed conservative treatment with anti-inflammatories, pain pills, intra-articular injections and physical therapy. She elected to undergo left total knee arthroplasty due to continued pain and decreased quality of life. Radiographs showed severe end stage osteoarthritis of the knee with bone on bone contact. Informed consent was obtained from the patient. She understood the risks of surgery included but were not limited to: bleeding, infection, damage to nearby structures, intraoperative fracture, nerve palsy, failure of the hardware, early loosening, knee stiffness or loss of motion, anesthesia complications, stroke, heart attack , blood clot and . She chose the navio robotic system and she understood the risks of the additional pin sites. She wished to proceed. Intra-Operative Findings: Intraoperatively the patient was noted to have severe loss of cartilage in all 3 compartments of the knee. The [employer] Navio robotic system was used. Description of the Procedure: YURI ALDRICH was identified in the preanesthesia unit. Her left knee was marked as the correct operative side. Informed consent was signed and placed in the chart. The patient was taken to the operating room and placed under anesthesia without complication. A galarza catheter was placed. A tourniquet was placed on the left thigh. The left lower extremity was prepped and draped in the usual sterile fashion. Preoperative time-out was made to correctly identify the patient, side and site. Appropriate intraoperative antibiotics were given within one hour of incision. Tourniquet was inflated. A midline incision was made and carried sharply down to the extensor mechanism. A new 10 blade was used to make a standard medial parapatellar arthrotomy. The patella was subluxed laterally. Electrocautery was used to dissect soft tissue off the superomedial tibia to the midsagittal plane. The knee was flexed up. The anterior horn of the lateral meniscus and the ACL/PCL were sharply incised. The 2 checkpoint screws were placed as well as the 4 pins. The arrays were attached without difficulty. The anatomic mapping was completed using the Connected navigation software. The implant sizes and placement was chosen using the [employer] system. The [employer] robotic elizabeth was used to make the distal femoral cuts. The external rotation guide was pinned on the distal femur and the distal femur was sized to a size 5. The size 5 multi-cutting jig was pinned on the distal femur. The oscillating saw was used to make the appropriate 4 chamfer cuts. Next the PCL was completely released. The extramedullary tibial cutting guide was pinned on the proximal tibia. The Navio cutting guide was placed in the tibial cutting jig and the exact angle of the cut was chosen. The oscillating saw was used to make the proximal tibial cut perpendicular to the mechanical axis of the tibia. The bone was carefully removed. The knee was brought out into full extension. The spacer block was placed and had excellent fit with the knee in full extension. The medial and lateral ligaments were well balanced. The flexion and extension gaps were well balanced. The knee was flexed up. Lamina evaluation manager was placed both medially and laterally. Any remaining meniscus was removed with electrocautery. Curved osteotome was used to remove any posterior osteophytes. The tibial tray and drop abner were placed and confirmed a satisfactory tibial cut. The size 5 left narrow femoral trial was impacted onto the distal femur. This trial had excellent fit and stability. The box for the posterior stabilized implant was prepared using a box cut osteotome and a reamer. Next a tibial tray trial and 9 mm insert trial was placed. The knee was taken through a range of motion and had full extension to 130 degrees of flexion. Patellofemoral tracking was satisfactory. The final checkpoints were mapped. Both screws and all 4 pins were carefully removed. The patella was inverted and sized to a size 29. Three peg holes were drilled through the size 29 drill guide. The trial patella was placed and the knee was taken through a range of motion. There was satisfactory patellofemoral tracking. All trials were removed. The tibia was subluxed anteriorly and sized to a size 3. The proximal tibial was prepared with a size 3 keel punch. All bony cut surfaces were irrigated with sterile saline and dried. Final implants were cemented into place starting with the tibia, followed by the femur, and last the patella. A 9 mm insert trial was placed and the knee was brought into full extension. Tourniquet was turned down and the knee was copiously irrigated with sterile saline. Electrocautery was used to obtain meticulous hemostasis. Once the cement had fully cured, the insert trial was removed. Any excess cement was removed from around the hardware and capsule. Final insert chosen was a 9 mm posterior stabilized Leyse II articular insert size 3-4. Stability of the insert was checked and noted to be stable. The extensor mechanism was closed using number 1 vicryls. The rest of the incision was closed in a layered fashion using 0 and 2-0 vicryls. The skin was closed using 3-0 nylon suture. Sterile xeroform, 4x4s and webril were used to cover the incision. Nicola wrap and cold pack were used to cover the dressings. The patients anesthesia was reversed without difficulty. She was taken to the PACU in stable condition. Intended weight-bearing will be as tolerated.
[2019-05-26] MEDS: Acetaminophen TAB* 325 MG PO SCH (17:38)
[2019-05-26] MEDS: ceFAZolin 1 GM ADVAN(*) 1 GM in NS 0.9% 50 ML* 50 ML IVPB SCH (17:43)
[2019-05-26] MEDS: Atorvastatin* 10 MG TAB PO SCH (17:43)
[2019-05-26] MEDS ORDERED: NS 0.9% 1000 ML** 1,000 ML IV ONE (18:17)
--- NOTE | 2019-05-26 18:26 | CONSULT ---
Subjective Date of Service: 05/26/19 Interval History: Ms. Quarles is an 79 year old female with history of afib, OA and HLP that presented to [facility] today for elective left total knee arthroplasty with Dr. Huerta. She was seen in the PACU post-operatively. She had an uneventful operative course, however, her temperature remained low after she was moved to the surgical unit. In the PACU she had no complaints but was drowsy from anesthesia. Hospitalists are requested to consult for medical management of co- morbid medical conditions during the post-operative period. Notified by primary RN that patient is nauseous and BP is low. Manual BP is 70s systolic. Family History: Unchanged from Admission - CV disease parents Social History: Unchanged from Admission - no history of smoking, ETOH or drugs , lives with significant other Past Medical History: Unchanged from Admission - as above Review of Systems - Measurements Intake and Output: Intake and Output Last 24 Hours 05/24/19 05/25/19 05/26/19 05/27/19 06:59 06:59 06:59 06:59 Intake Total 1450 Output Total 700 Balance 750 Weight 128 lb Intake: IV Fluids 1450 LR 1400 NS 50ML, Cefazolin 2G 50 Output: [place] 700 - Review of Systems Constitutional Symptoms: Negative: Weight Gain, Weight Loss, Weakness, Fatigue, Fever, Night Sweats, Unexplained Falls, Other Dermatology: Negative: Normal, Rash, Skin Lesions, Cancer, Skin Lumps, Other HEENT: Positive: Normal Pulmonary: Negative: Normal, Cough, Sputum, Hemoptysis, Wheezing, Respiratory Distress, Shortness of Breath, COPD, Asthma, Exercise Intolerance, Home Oxygen, Other Cardiology: Negative: Normal, Chest Pain, Shortness of Breath, Palpitations, Swelling of Ankles, Peripheral Vascular Dis, Edema, Faintness, Syncope, Claudication, Proximal NocturnalDyspnea, Orthopnoea, Other Gastroenterology: Negative: Normal, Abdominal Pain, Nausea, Vomiting, Anorexia, Indigestion, Difficulty Swallowing, Heartburn, Constipation, Diarrhea, Blood in Stools, Change in Bowel Habits, Haematemesis, Melena, Other Musculoskeletal: Positive: Joint Pain, Joint Stiffness Neurology: Negative: Normal, Headache, Migraines, Change in Vision, Diplopia, Dizziness , Change in Balancing, Change in Coordination, Change in Memory, Change in Speech, Change in Sphincter Function, Change in Walking, Numbness\Paresthesiae, Unexplained Weakness, Hx of Stroke\TIA, Hx of Seizures, Other Objective Active Medications: Acetaminophen (Tylenol Tab*) 975 mg PO 0000,0800,1600 [facility] Last Admin: 05/26/19 17:38 Dose: Not Given Atorvastatin Calcium (Lipitor*) 10 mg PO 1700 [facility] Last Admin: 05/26/19 17:43 Dose: 10 mg Bisacodyl (Dulcolax Supp*) 10 mg MD DAILY PRN PRN Reason: CONSTIPATION Cyclobenzaprine HCl (Flexeril Tab*) 10 mg PO Q6H PRN PRN Reason: SPASMS Diphenhydramine HCl (Benadryl Iv*) 25 mg IV Q6H PRN PRN Reason: PRURITIS Diphenhydramine HCl (Benadryl Po*) 25 mg PO Q6H PRN PRN Reason: PRURITIS Docusate Sodium (Colace Cap*) 100 mg PO BID [facility] Enoxaparin Sodium (Lovenox(*)) 30 mg SUBCUT Q24H [facility] Ferrous Sulfate (Ferrous Sulfate Tab*) 325 mg PO BID [facility] Cefazolin Sodium 1 gm/ Sodium (Chloride) 50 mls @ 200 mls/hr IVPB Q8H [facility] Stop: 05/27/19 10:14 Last Admin: 05/26/19 17:43 Dose: 200 mls/hr Lactated Ringer's (Lactated Ringers 1000 Ml Bag*) 1,000 mls @ 100 mls/hr IV PER RATE [facility] Last Admin: 05/26/19 13:35 Dose: 100 mls/hr Lactulose (Lactulose*) 30 ml PO BID PRN PRN Reason: CONSTIPATION Magnesium Hydroxide (Milk Of Magnesia Liq*) 30 ml PO BID [facility] Magnesium Hydroxide (Milk Of Magnesia Liq*) 30 ml PO Q6H PRN PRN Reason: CONSTIPATION Morphine Sulfate (Morphine Inj (Syringe))*) 2 mg IV Q4H PRN PRN Reason: Pain - Unrelieved Last Admin: 05/26/19 17:43 Dose: 2 mg Multivitamins (Theragran Tab*) 1 tab PO DAILY [facility] Ondansetron HCl (Zofran Inj*) 4 mg IV Q6H PRN PRN Reason: NAUSEA Ondansetron HCl (Zofran Odt Tab*) 4 mg PO Q6H PRN PRN Reason: NAUSEA Last Admin: 05/26/19 15:22 Dose: 4 mg Oxycodone HCl (Roxycodone Tab*) 10 mg PO Q4H PRN PRN Reason: Pain - Breakthrough Oxycodone/Acetaminophen (Percocet 5/325 Tab*) 1 tab PO Q4H PRN PRN Reason: PAIN - MODERATE Oxycodone/Acetaminophen (Percocet 5/325 Tab*) 2 tab PO Q4H PRN PRN Reason: PAIN - SEVERE Pantoprazole Sodium (Protonix Tab*) 40 mg PO EVERY OTHER DAY [facility] Pharmacy Profile Note (Coumadin Daily Reminder*) 1 note FOLLOW UP 1700 [facility] Last Admin: 05/26/19 17:43 Dose: 1 note Polyethylene Glycol/Electrolytes (Miralax*) 17 gm PO DAILY PRN PRN Reason: Constipation Prochlorperazine Edisylate (Compazine Inj*) 5 mg IV Q6H PRN PRN Reason: NAUSEA/VOMITING Temazepam (Restoril Cap*) 15 mg PO BEDTIME PRN PRN Reason: INSOMNIA Tramadol HCl (Ultram*) 50 mg PO Q6H PRN PRN Reason: PAIN - MODERATE Last Admin: 05/26/19 15:23 Dose: 50 mg Warfarin Sodium (Coumadin Tab(*)) 6 mg PO ONCE@1700 [facility]; Protocol Stop: 05/27/19 12:01 Vital Signs - 8 hr 05/26/19 05/26/19 05/26/19 10:52 12:17 12:20 Temperature 96.8 F Pulse Rate 78 80 78 Respiratory 28 Rate Blood Pressure 107/54 119/80 126/70 (mmHg) O2 Sat by Pulse 98 97 98 Oximetry 05/26/19 05/26/19 05/26/19 12:26 12:31 12:35 Temperature Pulse Rate 63 67 61 Respiratory 23 12 16 Rate Blood Pressure 116/65 129/73 112/80 (mmHg) O2 Sat by Pulse 98 100 100 Oximetry 05/26/19 05/26/19 05/26/19 12:40 12:46 13:00 Temperature Pulse Rate 61 61 61 Respiratory 22 22 19 Rate Blood Pressure 126/67 117/71 (mmHg) O2 Sat by Pulse 100 99 100 Oximetry 05/26/19 05/26/19 05/26/19 13:01 13:15 13:30 Temperature Pulse Rate 66 61 Respiratory 15 14 12 Rate Blood Pressure 117/74 127/93 (mmHg) O2 Sat by Pulse 100 93 Oximetry 05/26/19 05/26/19 05/26/19 13:34 14:37 15:23 Temperature 97.7 F 97.3 F Pulse Rate 61 59 Respiratory 12 16 16 Rate Blood Pressure 116/71 117/60 (mmHg) O2 Sat by Pulse 100 100 Oximetry 05/26/19 05/26/19 05/26/19 15:47 17:43 17:56 Temperature 97.3 F 98.4 F Pulse Rate 61 62 Respiratory 16 18 12 Rate Blood Pressure 102/72 92/45 (mmHg) O2 Sat by Pulse 100 99 Oximetry 05/26/19 18:12 Temperature Pulse Rate Respiratory Rate Blood Pressure 81/50 (mmHg) O2 Sat by Pulse Oximetry Oxygen Devices in Use Now: Nasal Cannula Appearance: alert, NAD Eyes: PERRLA Ears/Nose/Mouth/Throat: NL Teeth, Lips, Gums Neck: NL Appearance and Movements; NL JVP, Trachea Midline Respiratory: Symmetrical Chest Expansion and Respiratory Effort, Clear to Auscultation Cardiovascular: NL Sounds; No Murmurs; No JVD, RRR Abdominal: NL Sounds; No Tenderness; No Distention Extremities: No Edema, No Clubbing, Cyanosis, - - dressing left knee CDI Skin: No Rash or Ulcers Neurological: Alert and Oriented x 3 Assessment/Plan - Billing Assessment and Recommendations: 1. OA, s/p LTKA - POC as per ortho - Pain control - Bowel regimen - OOB with PT/OT - DVT prophy with lovenox-coumadin bridge 2. History of PAF - Rate controlled - Currently regular - Continue coumadin and follow daily INR during bridge 3. Hypothermia - Marin Hugger order - Monitor temp Q2H during active warming 4. Post-Op Hypotension and Nausea - Add compazine IV - Fluid bolus 1 liter now and reassess BP VTE PPX: - Lovenox-coumadin bridge Diet: - Regular as tolerated Code Status: - Full Code Admission Status and Rationale: - Admitted per ortho, dispo per ortho. Thank you for the courtesy of this consultation. Will continue to follow the patient along with you.
[2019-05-26] MEDS: Ferrous Sulfate TAB* 325 MG PO SCH ×2 (21:43→21:44)
[2019-05-26] MEDS: Docusate CAP* 100 MG PO SCH (21:43)
[2019-05-26] MEDS: oxyCODONE/Acetamin 5/325 MG* TAB PO PRN (21:43)
[2019-05-26] MEDS: Magnesium Hydroxide LIQ* 30 ML UDC PO SCH (21:44)
[2019-05-27] MEDS: Acetaminophen TAB* 325 MG PO SCH ×4 (01:00→19:09)
[2019-05-27] MEDS: ceFAZolin 1 GM ADVAN(*) 1 GM in NS 0.9% 50 ML* 50 ML IVPB SCH ×2 (01:57→10:06)
[2019-05-27] MEDS: oxyCODONE/Acetamin 5/325 MG* TAB PO PRN (05:15)
[2019-05-27 06:02] LABS: Hematocrit 34 % (35-47); Hemoglobin 11.2 g/dL (12.0-16.0); Mean Platelet Volume 8.5 fL (7.4-10.4); Platelet Count 134 10^3/uL (150-450)
[2019-05-27] MEDS: Lactated Ringers 1000 ML Bag* 1,000 ML IV SCH (06:08)
[2019-05-27 06:17] LABS: BUN/Creatinine Ratio 11.7 (8-20); Calcium 7.9 mg/dL (8.6-10.3); EGFR African American 87.3 (>60); EGFR Non-African American 72.1 (>60); Potassium 3.7 mmol/L (3.5-5.0)
--- NOTE | 2019-05-27 07:49 | PN ---
Progress Note - Progress Note Date of Service: 05/27/19 SOAP: Subjective: resting comfortably in bed; pain well controlled with current pain meds Objective: Vital Signs Temp Pulse Resp BP Pulse Ox 98.9 F 77 18 115/52 97 05/27/19 07:34 05/27/19 07:34 05/27/19 07:34 05/27/19 07:34 05/27/19 07:34 Laboratory Last Values Hgb 11.2 g/dL (12.0-16.0) L 05/27/19 05:46 Hct 34 % (35-47) L 05/27/19 05:46 Plt Count 134 10^3/uL (150-450) L 05/27/19 05:46 MPV 8.5 fL (7.4-10.4) 05/27/19 05:46 INR (Anticoag Therapy) 1.09 (0.82-1.09) 05/26/19 07:55 Sodium 135 mmol/L (135-145) 05/27/19 05:54 Potassium 3.7 mmol/L (3.5-5.0) 05/27/19 05:54 Chloride 105 mmol/L (101-111) 05/27/19 05:54 Carbon Dioxide 22 mmol/L (22-32) 05/27/19 05:54 Anion Gap 8 mmol/L (2-11) 05/27/19 05:54 BUN 9 mg/dL (6-24) 05/27/19 05:54 Creatinine 0.77 mg/dL (0.51-0.95) 05/27/19 05:54 Est GFR ( Amer) 87.3 (>60) 05/27/19 05:54 Est GFR (Non-Af Amer) 72.1 (>60) 05/27/19 05:54 BUN/Creatinine Ratio 11.7 (8-20) 05/27/19 05:54 Glucose 162 mg/dL (70-100) H 05/27/19 05:54 Calcium 7.9 mg/dL (8.6-10.3) L 05/27/19 05:54 dressing c/d/i PE: able to dorsi flex/plantar flex, 2+ DP pulse and intact sensation Assessment: s/p left TKA Plan: 1) PT/OT- WBAT 2) Eliquis for DVT prophylaxis 3) Home tomorrow once PT goals met
[2019-05-27] MEDS: Docusate CAP* 100 MG PO SCH ×2 (08:23→20:59)
[2019-05-27] MEDS: Magnesium Hydroxide LIQ* 30 ML UDC PO SCH ×2 (08:24→20:59)
[2019-05-27] MEDS: Ferrous Sulfate TAB* 325 MG PO SCH ×2 (08:24→20:59)
[2019-05-27] MEDS: Vitamin THERAPEUTIC TAB PO SCH (08:25)
[2019-05-27] MEDS: traMADol TAB* 50 MG PO PRN (11:18)
[2019-05-27] MEDS ORDERED: Warfarin TAB(*) 6 MG PO ONE (12:00)
[2019-05-27] MEDS: Enoxaparin(*) 30 MG/0.3 ML SYR SUBCUT SCH (12:34)
[2019-05-27] MEDS ORDERED: NS 0.9% 1000 ML** 1,000 ML IV ONE (15:54)
[2019-05-27] MEDS: Atorvastatin* 10 MG TAB PO SCH (18:38)
--- NOTE | 2019-05-27 18:42 | PN ---
Subjective Date of Service: 05/27/19 Interval History: Patient seen and examined, states she is feeling better today than yesterday. No further events last night, temperature has been within normal range. Pain is well controlled, no n/v, no fever or chills. Family History: Unchanged from Admission - CV disease parents Social History: Unchanged from Admission - no history of smoking, ETOH or drugs , lives with significant other Past Medical History: Unchanged from Admission - as above Objective Active Medications: Acetaminophen (Tylenol Tab*) 975 mg PO 0000,0800,1600 [facility] Last Admin: 05/27/19 16:36 Dose: Not Given Atorvastatin Calcium (Lipitor*) 10 mg PO 1700 [facility] Last Admin: 05/26/19 17:43 Dose: 10 mg Bisacodyl (Dulcolax Supp*) 10 mg CO DAILY PRN PRN Reason: CONSTIPATION Cyclobenzaprine HCl (Flexeril Tab*) 10 mg PO Q6H PRN PRN Reason: SPASMS Last Admin: 05/27/19 08:25 Dose: 10 mg Diphenhydramine HCl (Benadryl Iv*) 25 mg IV Q6H PRN PRN Reason: PRURITIS Diphenhydramine HCl (Benadryl Po*) 25 mg PO Q6H PRN PRN Reason: PRURITIS Docusate Sodium (Colace Cap*) 100 mg PO BID [facility] Last Admin: 05/27/19 08:23 Dose: 100 mg Enoxaparin Sodium (Lovenox(*)) 30 mg SUBCUT Q24H [facility] Last Admin: 05/27/19 12:34 Dose: 30 mg Ferrous Sulfate (Ferrous Sulfate Tab*) 325 mg PO BID [facility] Last Admin: 05/27/19 08:24 Dose: 325 mg Lactated Ringer's (Lactated Ringers 1000 Ml Bag*) 1,000 mls @ 100 mls/hr IV PER RATE [facility] Last Admin: 05/27/19 06:08 Dose: 100 mls/hr Lactulose (Lactulose*) 30 ml PO BID PRN PRN Reason: CONSTIPATION Magnesium Hydroxide (Milk Of Magnesia Liq*) 30 ml PO BID [facility] Last Admin: 05/27/19 08:24 Dose: 30 ml Magnesium Hydroxide (Milk Of Magnesia Liq*) 30 ml PO Q6H PRN PRN Reason: CONSTIPATION Morphine Sulfate (Morphine Inj (Syringe))*) 2 mg IV Q4H PRN PRN Reason: Pain - Unrelieved Last Admin: 05/26/19 17:43 Dose: 2 mg Multivitamins (Theragran Tab*) 1 tab PO DAILY [facility] Last Admin: 05/27/19 08:25 Dose: 1 tab Ondansetron HCl (Zofran Inj*) 4 mg IV Q6H PRN PRN Reason: NAUSEA Ondansetron HCl (Zofran Odt Tab*) 4 mg PO Q6H PRN PRN Reason: NAUSEA Last Admin: 05/26/19 15:22 Dose: 4 mg Oxycodone HCl (Roxycodone Tab*) 10 mg PO Q4H PRN PRN Reason: Pain - Breakthrough Last Admin: 05/27/19 10:07 Dose: 10 mg Oxycodone/Acetaminophen (Percocet 5/325 Tab*) 1 tab PO Q4H PRN PRN Reason: PAIN - MODERATE Last Admin: 05/27/19 05:15 Dose: 1 tab Oxycodone/Acetaminophen (Percocet 5/325 Tab*) 2 tab PO Q4H PRN PRN Reason: PAIN - SEVERE Last Admin: 05/27/19 13:39 Dose: 2 tab Pantoprazole Sodium (Protonix Tab*) 40 mg PO EVERY OTHER DAY [facility] Pharmacy Profile Note (Coumadin Daily Reminder*) 1 note FOLLOW UP 1700 [facility] Last Admin: 05/26/19 17:43 Dose: 1 note Polyethylene Glycol/Electrolytes (Miralax*) 17 gm PO DAILY PRN PRN Reason: Constipation Prochlorperazine Edisylate (Compazine Inj*) 5 mg IV Q6H PRN PRN Reason: NAUSEA/VOMITING Last Admin: 05/26/19 18:28 Dose: 5 mg Temazepam (Restoril Cap*) 15 mg PO BEDTIME PRN PRN Reason: INSOMNIA Tramadol HCl (Ultram*) 50 mg PO Q6H PRN PRN Reason: PAIN - MODERATE Last Admin: 05/27/19 11:18 Dose: 50 mg Vital Signs - 8 hr 05/27/19 05/27/19 05/27/19 11:18 11:42 12:35 Temperature 98.9 F Pulse Rate 83 Respiratory 18 18 18 Rate Blood Pressure 130/63 (mmHg) O2 Sat by Pulse 100 Oximetry 05/27/19 05/27/19 05/27/19 13:39 15:28 16:00 Temperature 99.0 F Pulse Rate 59 Respiratory 18 18 Rate Blood Pressure 78/38 (mmHg) O2 Sat by Pulse 96 96 Oximetry 05/27/19 05/27/19 16:35 16:59 Temperature Pulse Rate Respiratory 18 Rate Blood Pressure 96/52 (mmHg) O2 Sat by Pulse Oximetry Oxygen Devices in Use Now: None Appearance: alert, NAD Eyes: No Scleral Icterus, PERRLA Neck: NL Appearance and Movements; NL JVP, Trachea Midline Respiratory: Symmetrical Chest Expansion and Respiratory Effort, Clear to Auscultation Cardiovascular: NL Sounds; No Murmurs; No JVD, RRR, No Edema Abdominal: NL Sounds; No Tenderness; No Distention Extremities: No Edema Skin: No Rash or Ulcers Neurological: Alert and Oriented x 3, NL Muscle Strength and Tone Nutrition: Taking PO's Result Diagrams: 05/27/19 05:46 05/27/19 05:54 Assess/Plan/Problems-Billing Assessment : This is an 79 year old female with hx of OA, and PAF that is s/p LTKA. - Patient Problems (1) S/P total knee arthroplasty Code(s): Z96.659 - PRESENCE OF UNSPECIFIED ARTIFICIAL KNEE JOINT SNOMED Code(s ): 9868108822566 Comment: - POD1, POC as per ortho - Would refrain from narcotics which are causing hypotension - Bowel regimen - PT/OT (2) History of atrial fibrillation Code(s): Z86.79 - PERSONAL HISTORY OF OTHER DISEASES OF THE CIRCULATORY SYSTEM SNOMED Code(s): 764652464 Comment: - Rate controlled - Currently regular - Continue coumadin and follow daily INR during bridge (3) Hypotension Comment: - Correlating with administration of narcotics - Responded well to fluid boluses yesterday and today - Recommend minimizing narcotics and use tylenol for pain control (4) Hypothermia Code(s): T68.XXXA - HYPOTHERMIA, INITIAL ENCOUNTER SNOMED Code(s): 344362451 Comment: - Resolved Status and Disposition: Inpatient, dispo per ortho
[2019-05-28] MEDS: Acetaminophen TAB* 325 MG PO SCH ×2 (00:40→08:32)
[2019-05-28 06:14] LABS: Hematocrit 32 % (35-47); Hemoglobin 11.1 g/dL (12.0-16.0); Mean Platelet Volume 8.7 fL (7.4-10.4); Platelet Count 108 10^3/uL (150-450)
[2019-05-28 06:19] LABS: INR 2.23 (0.82-1.09)
[2019-05-28] MEDS: Vitamin THERAPEUTIC TAB PO SCH (08:31)
[2019-05-28] MEDS: Ferrous Sulfate TAB* 325 MG PO SCH (08:32)
[2019-05-28] MEDS: Docusate CAP* 100 MG PO SCH (08:32)
[2019-05-28] MEDS: Magnesium Hydroxide LIQ* 30 ML UDC PO SCH (08:33)
--- NOTE | 2019-05-28 08:40 | PN ---
Progress Note - Progress Note Date of Service: 05/28/19 SOAP: Subjective: resting comfortably, pain minimal Objective: Vital Signs Temp Pulse Resp BP Pulse Ox 98.5 F 59 17 101/40 100 05/28/19 07:55 05/28/19 07:55 05/28/19 07:55 05/28/19 07:55 05/28/19 07:55 Laboratory Last Values Hgb 11.1 g/dL (12.0-16.0) L 05/28/19 06:06 Hct 32 % (35-47) L 05/28/19 06:06 Plt Count 108 10^3/uL (150-450) L 05/28/19 06:06 MPV 8.7 fL (7.4-10.4) 05/28/19 06:06 INR (Anticoag Therapy) 2.23 (0.82-1.09) H 05/28/19 06:07 Sodium 135 mmol/L (135-145) 05/27/19 05:54 Potassium 3.7 mmol/L (3.5-5.0) 05/27/19 05:54 Chloride 105 mmol/L (101-111) 05/27/19 05:54 Carbon Dioxide 22 mmol/L (22-32) 05/27/19 05:54 Anion Gap 8 mmol/L (2-11) 05/27/19 05:54 BUN 9 mg/dL (6-24) 05/27/19 05:54 Creatinine 0.77 mg/dL (0.51-0.95) 05/27/19 05:54 Est GFR ( Amer) 87.3 (>60) 05/27/19 05:54 Est GFR (Non-Af Amer) 72.1 (>60) 05/27/19 05:54 BUN/Creatinine Ratio 11.7 (8-20) 05/27/19 05:54 Glucose 162 mg/dL (70-100) H 05/27/19 05:54 Calcium 7.9 mg/dL (8.6-10.3) L 05/27/19 05:54 incision: c/d/i PE: NVI Assessment: s/p left TKA; POD #2 Plan: 1) PT/OT- WBAT 2) Coumadin for DVT prophylaxis- will DC on home dose 3) home today; F/U with Dr. Huerta in 2 weeks
[2019-05-28] MEDS ORDERED: Pantoprazole TAB * 40 MG TAB PO SCH (09:00)
--- NOTE | 2019-05-28 09:35 | DS ---
DISCHARGE SUMMARY: DATE OF ADMISSION: 05/26/19 DATE OF DISCHARGE: 05/28/19 SURGEON: Caryn Huerta MD * (DICTATED BY MICHELLE TAVAREZ) PRINCIPAL DIAGNOSIS: Severe end-stage osteoarthritis of the left knee. DISCHARGE DIAGNOSIS: Severe end-stage osteoarthritis of the left knee. DISCHARGE DISPOSITION: Discharged home in stable condition. HISTORY OF PRESENT ILLNESS: Ms. Quarles is an 79-year-old female with complaints of left knee pain secondary to end-stage osteoarthritis. She failed conservative treatment and elected to proceed with a left total knee arthroplasty. HOSPITAL COURSE: Ms. Quarles was admitted electively to the hospital on and underwent a left total knee arthroplasty. She tolerated the procedure well without complications. Postoperatively, she was placed on Coumadin for DVT prophylaxis. On postoperative day 1, her H and H was 11 and 34, on postoperative day 11 and 32. Her INR on postoperative day 2 was 2.23. She was ambulating well with physical therapy and she was afebrile and her vital signs were stable. DISCHARGE MEDICATIONS: She was discharged with: 1. Percocet 5/325 one to two tabs every 4 to 6 hours. 2. Coumadin 2 mg tabs. She will take 2 mg Tuesdays and Fridays; and 4 mg Wednesday, Wednesday, , Wednesday and Wednesday. 3. Colace 100 mg tabs 2 to 3 daily as needed for constipation. 4. Lipitor 10 mg a day. 5. Protonix 40 mg a day. 6. Restoril 15 mg q.h.s. PHYSICAL EXAMINATION UPON DISCHARGE: She was afebrile. Her vital signs were stable. Her wound was clean and dry. She was ambulating well with therapy. She was able to dorsiflex and plantar flex. She had a 2+ dorsalis pedis pulse and intact sensation. DISCHARGE INSTRUCTIONS: She was discharged home. She was given prescription for Percocet for pain and was asked to take 1 every 4 to 6 hours as needed for pain. She currently has a prescription for Coumadin at her home, she has 2 mg tab. She is going to resume her preoperative dose, which is 2 mg on Tuesdays and Fridays and 4 mg the other days of the week. VNS will check her INR on Mondays and . She also has a prescription for Colace at home already, she is going to take that 2 to 3 times a day as needed for constipation. She is weightbearing as tolerated. She can shower starting on Wednesday, letting soap and water run over the incision, and pat the area dry. She will see Dr. Huerta back in clinic in 2 weeks. MICHELLE TAVAREZ [id number]/[facility] #: [id number] ROSS
[2019-05-28 11:49] VITALS: BP 99/39
[2019-05-28] MEDS ORDERED: Bisacodyl SUPP* 10 MG SUPP PR PRN (12:28)
[2019-05-28] MEDS: Enoxaparin(*) 30 MG/0.3 ML SYR SUBCUT SCH (13:33)
== END 2019-05-28 14:55 | disposition home or self-care (01) | DRG 470 ==
LOC: AA 07:16 → SSU 12:28
PROVIDERS: ADMIT Orthopaedic Surgery Adult Reconstructive Orthopaedic Surgery; ATTEND Orthopaedic Surgery Adult Reconstructive Orthopaedic Surgery
PROC: 8E0Y0CZ Robotic Assisted Procedure of Lower Extremity, Open Approach (ICD-10-PCS; 2019-05-26)
PROC: 0SRD0J9 Replacement of Left Knee Joint with Synthetic Substitute, Cemented, Open Approach (ICD-10-PCS; principal; 2019-05-26 09:00)
DX: M17.12 Unilateral primary osteoarthritis, left knee (principal); T68.XXXA Hypothermia, initial encounter; I48.0 Paroxysmal atrial fibrillation; M25.762 Osteophyte, left knee; E78.00 Pure hypercholesterolemia, unspecified; I95.2 Hypotension due to drugs; T40.605A Adverse effect of unspecified narcotics, initial encounter; Y92.230 Patient room in hospital as the place of occurrence of the external cause; Z95.810 Presence of automatic (implantable) cardiac defibrillator; Z96.651 Presence of right artificial knee joint; Z79.01 Long term (current) use of anticoagulants; Z79.82 Long term (current) use of aspirin; Z79.899 Other long term (current) drug therapy; Z88.8 Allergy status to other drugs, medicaments and biological substances; Z82.49 Family history of ischemic heart disease and other diseases of the circulatory system
CPT/HCPCS: 36415; 80048; 85014; 85018; 85049; 85610; 88305; 88311; A9270-GY; C1776; G8978-GP-CJ; G8979-GP-CI; J0690; J0780; J1650; J2250; J2270; J2704; J2795; J3010

== ENCOUNTER 2019-06-01 20:52 | Emergency (ER) | payer MEDICARE ==
--- NOTE | 2019-06-01 23:06 | ED ---
Lower Extremity - HPI Summary HPI Summary: Patient is a 79 y/o F who had a left knee replacement surgery six days ago, 05/26, presenting to [facility] with complaints of left knee pain, swelling, and redness. Patient states that she has been trying to do her home exercises as instructed but notes soreness and swelling of left knee. Today, 06/01/19, home health aide had noted increase of swelling and redness to the left knee. Aide called the daughter about patient's Sx. Patient is scheduled for follow-up appointment in four days, but, due to worsening of left knee pain, patient decided to come to ED for evaluation. Fever is denied. Patient has been ambulating with a walker. She lives with her domestic partner. Patient is on blood thinner for afib. On triage, pain is rated 8/10, nothing is noted to aggravate/alleviate Sx. Home medications and allergies are reviewed. - History of Current Complaint Chief Complaint: EDExtremityLower Stated Complaint: LEFT KNEE SWOLLEN PER DAUGHTER Time Seen by Provider: 06/01/19 22:47 Hx Obtained From: Patient Onset of Pain: Prior to Arrival Onset/Duration: Still Present Severity Currently: Severe Pain Intensity: 8 Pain Scale Used: 0-10 Numeric Timing: Constant Location: Is Discrete @ - left knee Associated Signs And Symptoms: Positive: Swelling - left knee, Redness - left knee, Knee Pain - left knee. 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 Denies: Hx Peripheral Vascular Disease GI History: Reports: Hx Gastroesophageal Reflux Disease, Hx Irritable Bowel, Hx Jaundice - as a child Musculoskeletal History: Reports: Hx Arthritis - osteoarthritis Denies: Hx Rheumatoid Arthritis Sensory History: Reports: Hx Contacts or Glasses - glasses Denies: Hx Hearing Aid Opthamlomology History: Reports: Hx Contacts or Glasses - glasses Neurological History: Denies: Hx Headaches, Hx Seizures, Hx Transient Ischemic Attacks (TIA) - Cancer History Hx Chemotherapy: No Hx Radiation Therapy: No - Surgical History Surgery Procedure, Year, and Place: [facility]-08/2012. Right total knee. tonsilectomy. appendectomy. hysterectomy Hx Anesthesia Reactions: Yes - nausea Infectious Disease History: No Infectious Disease History: Denies: Hx Clostridium Difficile, Hx Hepatitis, Hx Human Immunodeficiency Virus (HIV), Hx of Known/Suspected MRSA, Hx Shingles, Hx Tuberculosis, Hx Known/ Suspected VRE, Hx Known/Suspected VRSA, History Other Infectious Disease, Traveled Outside the [place] in Last 30 Days - Family History Known Family History: Positive: Other - FMHx of GI malignancy - Social History Alcohol Use: None Substance Use Type: Reports: None Smoking Status (MU): Never Smoked Tobacco Amount Used/How Often: 2 cigarettes a day Have You Smoked in the Last Year: No Review of Systems Negative: Fever Musculoskeletal: Other - positive - left knee pain Positive: Edema - left knee Skin: Other - positive - left knee erythema All Other Systems Reviewed And Are Negative: Yes Physical Exam - Summary Physical Exam Summary: Appearance: Well-appearing, Well-nourished, lying in bed comfortably Skin: Warm, dry, no obvious rash Eyes: sclera anicteric, no conjunctival pallor ENT: mucous membranes moist, pharynx appears normal Neck: Supple, nontender Respiratory: Clear to auscultation, no signs of respiratory distress Cardiovascular: Normal S1, S2. No murmurs. Normal distal pulses in tibial and radial bilaterally. Abdomen: Soft, nontender, normal active bowel sounds present Musculoskeletal: There is a clean and dry wound at the left knee from recent knee replacement. There is erythema and swelling about the wound extending laterally to both sides of the knee. There is bruising of the mid thigh and generalized, diffuse swelling of the LLE consistent with surgery. The redness around the wound is warm as well. ROM/strength is intact. Neurological: A&Ox3, awake and alert, mentation is normal, speech is fluent and appropriate Psychiatric: affect is normal, does not appear anxious or depressed Triage Information Reviewed: Yes Vital Signs On Initial Exam: Initial Vitals Temp Pulse Resp BP Pulse Ox 99.7 F 64 18 122/57 98 06/01/19 21:10 06/01/19 21:10 06/01/19 21:10 06/01/19 21:10 06/01/19 21:10 Vital Signs Reviewed: Yes Procedures - Sedation Patient Received Moderate/Deep Sedation with Procedure: No Diagnostics - Vital Signs Vital Signs Temp Pulse Resp BP Pulse Ox 06/01/19 21:10 99.7 F 64 18 122/57 98 - Laboratory Result Diagrams: 06/01/19 23:04 06/01/19 23:04 Lab Statement: Any lab studies that have been ordered have been reviewed, and results considered in the medical decision making process. Lower Extremity Course/Dx - Course Course Of Treatment: Patient is a 79 y/o F who had a left knee replacement surgery six days ago, 05/26/19, presenting to [facility] with complaints of left knee pain, swelling, and redness. Patient states that she has been trying to do her home exercises as instructed but notes soreness and swelling of left knee. Today , 06/01/19, home health aide had noted increase of swelling and redness to the left knee. Patient is scheduled for follow-up appointment in four days, but, due to worsening of left knee pain, patient decided to come to ED for evaluation. Fever is denied. On exam, there is a clean and dry wound at the left knee from recent knee replacement. There is erythema and swelling about the wound extending laterally to both sides of the knee. There is bruising of the mid thigh and generalized, diffuse swelling of the LLE consistent with surgery. The redness around the wound is warm as well. Bloodwork was obtained; abnormal values include RBC 3.18, Hgb 10.3, Hct 31, MCH 32, sodium 132, chloride 100, glucose 115, calcium 8.2, total bilirubin 1.2, AST 55, ALT 60, CRP 79.69, total protein 6.3. Patient's case was discussed with Dr. Taveras. Dr. Taveras asks that a sed rate be obtained and that the patient be discharged to home with office follow up with Dr. Huerta tomorrow morning, 06/02/19. ESR pending at time of discharge. - Diagnoses Provider Diagnoses: Hematoma of left lower extremity - Physician Notifications Discussed Care Of Patient With: Ray Taveras Time Discussed With Above Provider: 23:35 Instructed by Provider To: Other - Patient's case was discussed with Dr. Taveras , Dr. Taveras asks that a sed rate be obtained and that the patient be discharged to home with office follow up with Dr. Huerta tomorrow morning, . Discharge ED - Sign-Out/Discharge Documenting (check all that apply): Patient Departure - discharge - Discharge Plan Condition: Good Disposition: HOME Patient Education Materials: Hematoma (ED) Referrals: Caryn Huerta MD [Medical Doctor] - Additional Instructions: The lab tests we ran did not show evidence of infection. The redness is most likely coming from hematoma formation under the skin, not necessarily an infection. I spoke to Dr. Taveras, covering for Dr. Huerta, and she would like to have you seen in clinic with Dr. Huerta tomorrow. Call the office around 830 am and they will give you a time to come in and see Dr. Huerta. - Billing Disposition and Condition Condition: GOOD Disposition: Home - Attestation Statements Document Initiated by Chas: Yes Documenting Scribe: JOEL VEGA Provider For Whom Chas is Documenting (Include Credential): WILD LOPEZ MD Scribe Attestation: IJOEL, scribed for WILD LOPEZ MD on 06/02/19 at 0557. Scribe Documentation Reviewed: Yes Provider Attestation: The documentation as recorded by the JOEL august accurately reflects the service I personally performed and the decisions made by me, WILD LOPEZ MD Status of Scribe Document: Viewed
[2019-06-01 23:11] LABS: Hematocrit 31 % (35-47); Hemoglobin 10.3 g/dL (12.0-16.0); Mean Corpuscular HGB Conc 34 g/dL (31-36); Mean Corpuscular Hemoglobin 32 pg (27-31); Mean Corpuscular Volume 96 fL (80-97); Mean Platelet Volume 8.9 fL (7.4-10.4); Platelet Count 215 10^3/uL (150-450); Red Blood Count 3.18 10^6 /uL (3.70-4.87); Red Cell Distribution Width 14 % (10-15); White Blood Count 10.5 10^3/uL (3.5-10.8)
[2019-06-01 23:26] LABS: Albumin 3.3 g/dL (3.2-5.2); Albumin/Globulin Ratio 1.1 (1-3); BUN/Creatinine Ratio 13.6 (8-20); C Reactive Protein 79.69 mg/L (<8.01); Calcium 8.2 mg/dL (8.6-10.3); EGFR African American 82.3 (>60); Potassium 3.9 mmol/L (3.5-5.0); Total Bilirubin 1.2 mg/dL (0.2-1.0); Total Protein 6.3 g/dL (6.4-8.9)
[2019-06-02 00:14] VITALS: BP 133/67
[2019-06-02 00:51] LABS: ABS Eosinophils 0.1 10^3/ul (0-0.6); ABS Lymphocytes 0.8 10^3/ul (1.0-4.8); ABS Monocytes 3.9 10^3/ul (0-0.8); ABS Neutrophils 5.6 10^3/ul (1.5-7.7); Eosinophil % 1.1 %; Nucleated Red Blood Cells % 0.2; Platelet Morphology Large; Polychromasia 2+
[2019-06-02 01:11] LABS: Erythrocyte Sed Rate 78 mm/Hr (0-29)
== END 2019-06-02 00:13 | disposition home or self-care (01) ==
LOC: ED 20:52
DX: S80.12XA Contusion of left lower leg, initial encounter (principal); Z96.652 Presence of left artificial knee joint; X58.XXXA Exposure to other specified factors, initial encounter; Y92.9 Unspecified place or not applicable; I48.91 Unspecified atrial fibrillation; I25.10 Atherosclerotic heart disease of native coronary artery without angina pectoris; K21.9 Gastro-esophageal reflux disease without esophagitis; Z90.710 Acquired absence of both cervix and uterus; Z87.891 Personal history of nicotine dependence; Z95.0 Presence of cardiac pacemaker; Z79.01 Long term (current) use of anticoagulants; Z88.8 Allergy status to other drugs, medicaments and biological substances
CPT/HCPCS: 36415; 80053; 85025; 85060; 85652; 86140; 99282

== ENCOUNTER 2020-04-19 08:30 | Inpatient (IN) ==
[~2020-04-19 08:30] MED LIST changes: -Acetaminophen TAB* 325 MG PO ONE; +Buffered Lidocaine 1% SYRIN 1 ml INTRADERM ONE; -Buffered Lidocaine 1% SYRIN* 1 ML/SYRINGE INTRADERM ONE; +Dexamethasone IV 4 MG/ML VIAL 1 ml VIAL IV SLOW PU ONE; -Lactated Ringers 1000 ML Bag* 1,000 ML IV SCH; +Lactated Ringers 1000 ml BAG 1,000 ML IV SCH; -Tranexamic Acid 1,000 MG in NS 0.9% 50 ML* (outpatient use) IV SCH
[2020-04-19] MEDS ORDERED: Dexamethasone IV 4 MG/ML VIAL 1 ml VIAL ONE (12:07)
[2020-04-19] MEDS ORDERED: ceFAZolin 2 GM PREMIX 2 GM/50 ML BAG ONE (12:07)
[2020-04-19 13:16] LABS: Activated Partial Thrombo Time 28.5 seconds (26.0-38.0); INR 1.1 (0.82-1.09)
[2020-04-19] MEDS ORDERED: fentaNYL 100 mcg/2 ml 50 MCG/ML VIAL ONE (14:09)
[2020-04-19] MEDS ORDERED: Midazolam 2 mg/2 ml VIAL 1 mg/ml 2 ml VIAL (2 mg) ONE (14:09)
[2020-04-19] MEDS ORDERED: Propofol 10 MG/ML 20 ML BTL ONE (14:09)
[2020-04-19] MEDS ORDERED: Bupivacaine 0.5% SDV PF 30ML VIAL ONE (14:15)
[2020-04-19] MEDS ORDERED: Ondansetron 4 mg VIAL 2 MG/ML 2 ml VIAL IV PRN ×2 (16:20→17:40)
[2020-04-19] MEDS ORDERED: HYDROmorphone 1 MG/1 ML SYRINGE IV PRN (16:20)
[2020-04-19] MEDS ORDERED: Naloxone 0.4 mg VIAL 0.4 mg/ml 1 ml VIAL IV PRN (16:20)
[2020-04-19] MEDS ORDERED: fentaNYL 100 mcg/2 ml 50 MCG/ML VIAL IV PRN (16:20)
[2020-04-19] MEDS ORDERED: Lactulose 30 ml UDC PO PRN (17:40)
[2020-04-19] MEDS ORDERED: Magnesium Hydroxide LIQ 30 ML UDC PO PRN (17:40)
[2020-04-19] MEDS ORDERED: oxyCODONE/Acetamin 5/325 mg TAB PO PRN ×2 (17:40)
[2020-04-19] MEDS ORDERED: diPHENhydraMINE IV 50 MG/ML 1 ml VIAL (BENADRYL) IV PRN (17:40)
[2020-04-19] MEDS ORDERED: Ondansetron ODT 4 mg TAB 4 MG TAB PO PRN (17:40)
[2020-04-19] MEDS ORDERED: Morphine 2 MG/ML SYRINGE IV PRN (17:40)
[2020-04-19] MEDS ORDERED: diPHENhydraMINE 25 mg TAB PO PRN (17:40)
[2020-04-19] MEDS: Lactated Ringers 1000 ml BAG 1,000 ML IV SCH (20:56)
[2020-04-19] MEDS: Magnesium Hydroxide LIQ 30 ML UDC PO SCH (22:55)
[2020-04-19] MEDS ORDERED: ceFAZolin 1 GM ADVAN 1 GM in NS 0.9% 50 ML 50 ML IVPB SCH (23:00)
[2020-04-19] MEDS ORDERED: NS 0.9% 1000 ml BAG 1,000 ML IV ONE (23:57)
[2020-04-20] MEDS ORDERED: Polyethylene Glycol 3350 17 GM PACKET PO PRN (00:01)
[2020-04-20] MEDS: Lactated Ringers 1000 ml BAG 1,000 ML IV SCH (01:23)
[2020-04-20 05:32] LABS: Hematocrit 34 % (35-47); Hemoglobin 11.5 g/dL (12.0-16.0); Mean Platelet Volume 9.3 fL (7.4-10.4); Platelet Count 132 10^3/uL (150-450)
[2020-04-20 05:48] LABS: BUN/Creatinine Ratio 15.9 (8-20); Calcium 7.9 mg/dL (8.6-10.3); EGFR African American 81.2 (>60); EGFR Non-African American 67.1 (>60); Potassium 4.1 mmol/L (3.5-5.0)
[2020-04-20] MEDS: ceFAZolin 1 GM ADVAN 1 GM in NS 0.9% 50 ML 50 ML IVPB SCH ×2 (06:31→14:04)
[2020-04-20] MEDS: Enoxaparin 40 MG/0.4 ML SYR SUBCUT SCH (07:35)
[2020-04-20] MEDS ORDERED: CMCS:Omeprazole 20 mg CAP (NF) PO SCH (09:00)
[2020-04-20] MEDS ORDERED: Lactated Ringers 500 ml BAG 500 ML IV ONE ×2 (09:36→11:24)
[2020-04-20] MEDS: Magnesium Hydroxide LIQ 30 ML UDC PO SCH ×2 (09:37→21:26)
[2020-04-20] MEDS: Vitamin THERAPEUTIC TAB PO SCH (09:37)
[2020-04-20 18:37] LABS: INR 1.25 (0.82-1.09)
[2020-04-21] MEDS: Magnesium Hydroxide LIQ 30 ML UDC PO SCH (08:11)
[2020-04-21] MEDS: Vitamin THERAPEUTIC TAB PO SCH (08:11)
[2020-04-21] MEDS: Enoxaparin 40 MG/0.4 ML SYR SUBCUT SCH (08:12)
[2020-04-21 08:15] VITALS: BP 97/41
[2020-04-21 08:34] LABS: Hematocrit 32 % (35-47); Mean Platelet Volume 9.3 fL (7.4-10.4); Platelet Count 111 10^3/uL (150-450)
== END 2020-04-21 10:52 | disposition home health service (06) | DRG 470 ==
LOC: AA 11:48 → SSU 20:48
PROVIDERS: ADMIT Orthopaedic Surgery Adult Reconstructive Orthopaedic Surgery; ATTEND Orthopaedic Surgery Adult Reconstructive Orthopaedic Surgery